=== PATIENT | female | born 1955 | race Caucasian/White ===

== ENCOUNTER 2022-02-19 11:41 | Emergency (ER) | payer MEDICARE, MEDICAID, SELFPAY ==
[2022-02-19 11:48] VITALS: BP 140/95; PULSE 97; RESP 15; TEMP 35.8; O2SAT 97; BMI 24.9
[2022-02-19 12:20] LABS: Add Manual Diff / Slide Review NO; Basophils Absolute Auto 100 /uL (0-100); Basophils Percent Auto 1.5 % (0-2); Eosinophils Absolute Auto 200 /uL (0-450); Eosinophils Percent Auto 3.7 % (2-4); Hematocrit 36.2 % (36-46); Hemoglobin 12.4 g/dL (12.0-16.0); Lymphocytes Absolute Auto 2100 /uL (1100-4500); Lymphocytes Percent Auto 38.6 % (25-40); Mean Corpuscular HGB Conc 34.2 % (30-36); Mean Corpuscular Hemoglobin 33.9 PG (26-34); Mean Corpuscular Volume 99.2 fL (80-100); Monocytes Absolute Auto 600 /uL (0-900); Neutrophils Absolute Auto 2400 /uL (1500-7000); Neutrophils Percent Auto 45.2 % (50-75); Platelet Count 250 X10^3/uL (150-400); Red Blood Cell Count 3.65 X10^6/uL (4.0-5.2); Red Cell Distribution Width 14.6 % (11.6-14.8); White Blood Cell Count 5.4 X10^3/uL (4.5-11.0)
[2022-02-19 12:41] LABS: Alanine Aminotransferase 20 IU/L (<35); Albumin 4.4 g/dL (3.5-5.0); Albumin Globulin Ratio 1.1 (1.0-2.8); Alkaline Phosphatase 108 U/L (38-126); Aspartate Aminotransferase 43 IU/L (14-36); BUN Creatinine Ratio 15.3 (6-22); Bilirubin Total 0.3 mg/dL (0.2-1.3); Blood Urea Nitrogen 11 mg/dL (7-17); Calcium 8.9 mg/dL (8.4-10.2); Carbon Dioxide 29 mmol/L (22-32); Estimated Glomerular Filt Rate > 60 mL/min (>60); Globulin 4.1 g/dL (1.7-4.1); Glucose 94 mg/dL (80-110); HEMOLYSIS < 15 (0-50); Salicylate < 1.0 mg/dL (<20); Total Protein 8.5 g/dL (6.3-8.2)
[2022-02-19 12:57] LABS: Free T4, Direct Thyroxine 0.85 ng/dL (0.78-2.19)
[2022-02-19 13:14] LABS: Acetaminophen < 10 ug/mL (10-30); Ethanol (ETOH) 281 mg/dL
[2022-02-19 13:16] LABS: Chloride 109 mmol/L (98-107); Potassium 4.1 mmol/L (3.4-5.1); Sodium 146 mmol/L (137-145)
[2022-02-19 13:27] LABS: UR Morphine/Opiate cutoff 300 Negative (Negative); Ur Creatinine Normal (Normal); Ur Specific Gravity Normal (Normal); Urine Amphetamines Negative (Negative); Urine Barbiturates Negative (Negative); Urine Benzodiazepines Negative (Negative); Urine Cocaine Negative (Negative); Urine MDMA Negative (Negative); Urine Methadone Negative (Negative); Urine Methamphetamines Negative (Negative); Urine Oxycodone Negative (Negative); Urine Phencyclidine Negative (Negative); Urine Tricyclic Antidepressant Negative (Negative); Urine pH Normal (Normal)
[2022-02-19 13:55] VITALS: BP 135/75; PULSE 82; O2SAT 97
[2022-02-19 15:11] VITALS: O2SAT 97
--- NOTE | 2022-02-19 15:11 | ED.PSYCH ---
HPI - Psych <Saira Jara, [facility] - Last Filed: 02/19/22 15:28> General Chief Complaint: Psychiatric Symptoms Stated Complaint: Blood alcohol .14 Time Seen by Provider: 02/19/22 12:16 Source: patient Mode of arrival: Ambulatory History of Present Illness HPI Narrative: This is a 66-year-old female who presents to the emergency department stating that she is very sad and depressed and does not want to live because she has no hope. She is currently living at the [facility] and patient is not living there with a family and states that her family is living in [place] and in [place], they are nearby but she is feeling very lonely. She states that she no longer has hope and came in for assistance to a transitions program at the [facility] so that she can live there for reduced cost. Patient states that she feels isolated and exhausted, she has not been taking her losartan, citalopram or bupropion for the last few days because she states that she was too depressed to take them. She is tearful, here with Jenny Blankenship from the [facility] who states that patient had a blood alcohol level of 0.14 earlier today. Patient denies drinking alcohol, she states that she does not drink alcohol daily or monthly. She denies any audio or visual hallucinations, she denies any voices, she denies any intent to hurt other people, she denies any intention of killing herself or hurting herself. She states that she wants to get an appointment at the sleep study center so she can get fitted for her CPAP machine and this is causing her stress because she is not sleeping well. It appears that patient has a scheduled appointment on March 23 for follow-up. Patient states that there is a child crying frequently at the [facility] who needs help and she feels like this was a trigger. She does not endorse drinking alcohol, she states that she uses a high alcohol mouthwash for her bleeding gums and she also uses permethrin cream for a rash on her hand which has alcohol in it. Leonie from social work is in room for evaluation. Related Data Home Medications Medication Instructions Recorded Confirmed aspirin 81 mg tablet,delayed 81 mg PO DAILY 01/12/22 02/05/22 release bupropion HCl 150 mg tablet,12 hr 150 mg PO QAM 01/12/22 02/05/22 sustained-release citalopram 20 mg tablet 20 mg PO DAILY 01/12/22 02/05/22 hydroxyzine pamoate 25 mg/5 mL mg PO 01/12/22 02/05/22 oral suspension levothyroxine 50 mcg capsule 50 mcg PO DAILY 01/12/22 02/05/22 losartan 50 mg tablet 50 mg PO DAILY 01/12/22 02/05/22 omeprazole 20 mg capsule,delayed 20 mg PO DAILY 01/12/22 02/05/22 release Allergies Allergy/AdvReac Type Severity Reaction Status Date / Time No Known Drug Allergies Allergy Verified 02/19/22 11:48 Review of Systems <VALENTINE Newsome - Last Filed: 02/19/22 15:28> Review of Systems Narrative: Review of systems is negative for acute abnormalities unless otherwise noted in HPI Patient History <VALENTINE Newsome - Last Filed: 02/19/22 15:28> Medical History Obstructive sleep apnea (adult) (pediatric) Social History Smoking Status: Never smoker Smoking Status: Never smoker alcohol intake frequency: 3 or more drinks per day Substance Use Type: does not use Exam <VALENTINE Newsome - Last Filed: 02/19/22 15:28> Narrative Exam Narrative: Reviewed vitals signs and nursing notes. General: cooperative, well groomed, tearful, anxious, denies any pain or abnormal medical condition HEENT: symmetrical facial expressions, moist mucous membranes Cardiovascular: regular rate and rhythm, no peripheral edema, warm extremities Respiratory: normal effort, able to speak in complete sentences, without wheezing, stridor, or abnormal breath sounds. No retractions or tachypnea. GI: abdomen soft, nontender to palpation, nondistended, without masses, rebound tenderness or exquisite tenderness with exam. MSK: moves all extremities, neurovascularly intact, no weakness, normal tone Skin: brisk capillary refill, without pallor or erythema Neuro: normal speech and cognition, A&O x3, ambulatory, clear speech Psych: mental status is grossly normal, congruent mood, normal affect, pleasant and cooperative, talkative, A&O x3 Initial Vital Signs Initial Vital Signs: Vital Signs Temperature 96.4 F L 02/19/22 11:48 Pulse Rate 97 H 02/19/22 11:48 Respiratory Rate 15 02/19/22 11:48 Blood Pressure 140/95 H 02/19/22 11:48 Pulse Oximetry 97 02/19/22 11:48 Oxygen Delivery Method 02/19/22 11:48 <Jamaica Paz DO - Last Filed: 02/25/22 08:38> Initial Vital Signs Initial Vital Signs: Vital Signs Temperature 96.4 F L 02/19/22 11:48 Pulse Rate 97 H 02/19/22 11:48 Respiratory Rate 15 02/19/22 11:48 Blood Pressure 140/95 H 02/19/22 11:48 Pulse Oximetry 97 02/19/22 11:48 Oxygen Delivery Method 02/19/22 11:48 Course <VALENTINE Newsome - Last Filed: 02/19/22 15:28> Orders Ordered: ED Orders 02/19/22 11:56 Urine Drug Screen, Rapid Stat 02/19/22 12:06 Acetaminophen Stat Complete Blood Count AUTO DIFF Stat Comprehensive Metabolic Panel Stat Ethanol (ETOH) Stat Free T4, Direct Thyroxine Stat Salicylate Stat Thyroid Stimulating Hormone Stat 02/19/22 14:04 Consult to [facility] Label Sewer Stat Vital Signs Vital signs: Vital Signs - 8 hr 02/19/22 11:48 02/19/22 13:55 02/19/22 13:55 Temperature 96.4 F L Pulse Rate 97 H 82 Respiratory Rate 15 Blood Pressure 140/95 H 135/75 Pulse Oximetry 97 97 Oxygen Delivery Method Room Air 02/19/22 15:11 02/19/22 15:12 02/19/22 15:12 Temperature 98.0 F Pulse Rate 76 Respiratory Rate Blood Pressure 158/70 H Pulse Oximetry 97 97 Oxygen Delivery Method <Jamaica Paz DO - Last Filed: 02/25/22 08:38> Orders Ordered: ED Orders 02/19/22 11:56 Urine Drug Screen, Rapid Stat 02/19/22 12:06 Acetaminophen Stat Complete Blood Count AUTO DIFF Stat Comprehensive Metabolic Panel Stat Ethanol (ETOH) Stat Free T4, Direct Thyroxine Stat Salicylate Stat Thyroid Stimulating Hormone Stat 02/19/22 14:04 Consult to [facility] Label Sewer Stat Vital Signs Vital signs: Vital Signs - 8 hr 02/19/22 11:48 02/19/22 13:55 02/19/22 13:55 Temperature 96.4 F L Pulse Rate 97 H 82 Respiratory Rate 15 Blood Pressure 140/95 H 135/75 Pulse Oximetry 97 97 Oxygen Delivery Method Room Air 02/19/22 15:11 02/19/22 15:12 02/19/22 15:12 Temperature 98.0 F Pulse Rate 76 Respiratory Rate Blood Pressure 158/70 H Pulse Oximetry 97 97 Oxygen Delivery Method MDM - Psych <Saira Jara, [employer] - Last Filed: 02/19/22 15:28> Lab Data Result diagrams: 02/19/22 12:06 02/19/22 12:06 Labs: Lab Results 02/19/22 02/19/22 02/19/22 Range/Units 11:56 12:06 12:06 WBC 5.4 (4.5-11.0) X10^3/uL RBC 3.65 L (4.0-5.2) X10^6/uL Hgb 12.4 (12.0-16.0) g/dL Hct 36.2 (36-46) % MCV 99.2 (80-100) fL MCH 33.9 (26-34) PG MCHC 34.2 (30-36) % RDW 14.6 (11.6-14.8) % Plt Count 250 (150-400) X10^3/uL Neut % (Auto) 45.2 L (50-75) % Lymph % (Auto) 38.6 (25-40) % [place] % (Auto) 11.0 (3-14) % Eos % (Auto) 3.7 (2-4) % Baso % (Auto) 1.5 (0-2) % Neut # (Auto) 2400 (0406-6728) /uL Lymph # (Auto) 2100 (1701-0341) /uL [place] # (Auto) 600 (0-900) /uL Eos # (Auto) 200 (0-450) /uL Baso # (Auto) 100 (0-100) /uL Sodium 146 H (137-145) mmol/L Potassium 4.1 (3.4-5.1) mmol/L Chloride 109 H (98-107) mmol/L Carbon Dioxide 29 (22-32) mmol/L BUN 11 (7-17) mg/dL Creatinine 0.72 (0.52-1.04) mg/dL Estimated GFR > 60 (>60) mL/min BUN/Creatinine Ratio 15.3 (6-22) Glucose 94 (80-110) mg/dL Calcium 8.9 (8.4-10.2) mg/dL Total Bilirubin 0.3 (0.2-1.3) mg/dL AST 43 H (14-36) IU/L ALT 20 (<35) IU/L Alkaline Phosphatase 108 (38-126) U/L Total Protein 8.5 H (6.3-8.2) g/dL Albumin 4.4 (3.5-5.0) g/dL Globulin 4.1 (1.7-4.1) g/dL Albumin/Globulin Ratio 1.1 (1.0-2.8) TSH (0.47-4.68) uIU/mL Free T4 (0.78-2.19) ng/dL Salicylates < 1.0 (<20) mg/dL U Opiates 300ng/mL cut Negative (Negative) Ur Oxycodone Screen Negative (Negative) Urine Methadone Screen Negative (Negative) Acetaminophen < 10 (10-30) ug/mL Ur Barbiturates Screen Negative (Negative) U Tricyclic Antidepress Negative (Negative) Ur Phencyclidine Scrn Negative (Negative) Ur Amphetamines Screen Negative (Negative) U Methamphetamines Scrn Negative (Negative) Ur MDMA Scrn (Ecstasy) Negative (Negative) U Benzodiazepines Scrn Negative (Negative) Urine Cocaine Screen Negative (Negative) U Marijuana (THC) Screen TNP Ethyl Alcohol 281 H ( - 10) mg/dL 02/19/22 Range/Units 12:06 WBC (4.5-11.0) X10^3/uL RBC (4.0-5.2) X10^6/uL Hgb (12.0-16.0) g/dL Hct (36-46) % MCV (80-100) fL MCH (26-34) PG MCHC (30-36) % RDW (11.6-14.8) % Plt Count (150-400) X10^3/uL Neut % (Auto) (50-75) % Lymph % (Auto) (25-40) % [place] % (Auto) (3-14) % Eos % (Auto) (2-4) % Baso % (Auto) (0-2) % Neut # (Auto) (7238-6476) /uL Lymph # (Auto) (6604-8976) /uL [place] # (Auto) (0-900) /uL Eos # (Auto) (0-450) /uL Baso # (Auto) (0-100) /uL Sodium (137-145) mmol/L Potassium (3.4-5.1) mmol/L Chloride (98-107) mmol/L Carbon Dioxide (22-32) mmol/L BUN (7-17) mg/dL Creatinine (0.52-1.04) mg/dL Estimated GFR (>60) mL/min BUN/Creatinine Ratio (6-22) Glucose (80-110) mg/dL Calcium (8.4-10.2) mg/dL Total Bilirubin (0.2-1.3) mg/dL AST (14-36) IU/L ALT (<35) IU/L Alkaline Phosphatase (38-126) U/L Total Protein (6.3-8.2) g/dL Albumin (3.5-5.0) g/dL Globulin (1.7-4.1) g/dL Albumin/Globulin Ratio (1.0-2.8) TSH 3.70 (0.47-4.68) uIU/mL Free T4 0.85 (0.78-2.19) ng/dL Salicylates (<20) mg/dL U Opiates 300ng/mL cut (Negative) Ur Oxycodone Screen (Negative) Urine Methadone Screen (Negative) Acetaminophen (10-30) ug/mL Ur Barbiturates Screen (Negative) U Tricyclic Antidepress (Negative) Ur Phencyclidine Scrn (Negative) Ur Amphetamines Screen (Negative) U Methamphetamines Scrn (Negative) Ur MDMA Scrn (Ecstasy) (Negative) U Benzodiazepines Scrn (Negative) Urine Cocaine Screen (Negative) U Marijuana (THC) Screen Ethyl Alcohol ( - 10) mg/dL Urine Dip Bedside Urine Glucose Negative Bedside Urine Bilirubin - Negative Bedside Urine Ketone - Negative Urine Specific [place] 1.015 Bedside Urine Occult Blood - Negative Bedside Urine pH 6.0 Bedside Urine Protein - Negative Bedside Urine Urobilinogen - Negative Bedside Urine Nitrite - Negative Bedside Urine Leukocytes - Negative Esterase MDM Narrative Medical decision making narrative: This is a 66-year-old female who presents to the emergency department for evaluation of her depression, she is here from the [facility] with the counselor on site- Jenny Blankenship. Patient had a blood alcohol level of 0.14 this morning, she was brought in for evaluation of her suicidality for medical screening and resources. Her medical screening evaluation was completed, patient denies drinking alcohol, states it is mouthwash and permethrin cream that is causing her alcohol level to go high, her ethyl alcohol level was 281 on evaluation in the emergency department. Patient's lab work was unremarkable, no significant findings other than her elevated alcohol level. She denies any pain, has not been taking her antihypertensives or antidepressants for the last few days due to her depression. She was evaluated by Leonie from social work and patient requests to go home, she does not want to go to inpatient psychiatric care or detox. She does not endorse suicidality or homicidality at this time, she is alert and oriented. Medical screening exam is reassuring, at this time not see any evidence of acute metabolic or infectious derangement would otherwise explain the patient's presentation. Discuss alcohol use and avoidance of, encourage patient to start taking her antidepressants and follow-up with her PCP if she is having worsening depression despite taking her medications. Please see INSPECTOR GENERAL note. Patient endorses future orientation and does not express suicidality. She is given strict return precautions and understands that she can be discharged with a safety contract to return to the emergency department for any worsening of these thoughts or any intentions to hurt herself or other people. Patient is appropriate and amenable to discharge home. Vital signs are stable on repeat examination is unremarkable. Patient has been informed of results. Patient has been given strict return to ER precautions for any new or worsening symptoms. Patient understands to follow up closely with outpatient providers as instructed. Patient understands plan and agrees to discharge home. All questions and concerns answered at this time. <Jamaica Paz, DO - Last Filed: 02/25/22 08:38> Lab Data Labs: Lab Results 02/19/22 02/19/22 02/19/22 Range/Units 11:56 12:06 12:06 WBC 5.4 (4.5-11.0) X10^3/uL RBC 3.65 L (4.0-5.2) X10^6/uL Hgb 12.4 (12.0-16.0) g/dL Hct 36.2 (36-46) % MCV 99.2 (80-100) fL MCH 33.9 (26-34) PG MCHC 34.2 (30-36) % RDW 14.6 (11.6-14.8) % Plt Count 250 (150-400) X10^3/uL Neut % (Auto) 45.2 L (50-75) % Lymph % (Auto) 38.6 (25-40) % [place] % (Auto) 11.0 (3-14) % Eos % (Auto) 3.7 (2-4) % Baso % (Auto) 1.5 (0-2) % Neut # (Auto) 2400 (1454-2226) /uL Lymph # (Auto) 2100 (4321-2058) /uL [place] # (Auto) 600 (0-900) /uL Eos # (Auto) 200 (0-450) /uL Baso # (Auto) 100 (0-100) /uL Sodium 146 H (137-145) mmol/L Potassium 4.1 (3.4-5.1) mmol/L Chloride 109 H (98-107) mmol/L Carbon Dioxide 29 (22-32) mmol/L BUN 11 (7-17) mg/dL Creatinine 0.72 (0.52-1.04) mg/dL Estimated GFR > 60 (>60) mL/min BUN/Creatinine Ratio 15.3 (6-22) Glucose 94 (80-110) mg/dL Calcium 8.9 (8.4-10.2) mg/dL Total Bilirubin 0.3 (0.2-1.3) mg/dL AST 43 H (14-36) IU/L ALT 20 (<35) IU/L Alkaline Phosphatase 108 (38-126) U/L Total Protein 8.5 H (6.3-8.2) g/dL Albumin 4.4 (3.5-5.0) g/dL Globulin 4.1 (1.7-4.1) g/dL Albumin/Globulin Ratio 1.1 (1.0-2.8) TSH (0.47-4.68) uIU/mL Free T4 (0.78-2.19) ng/dL Salicylates < 1.0 (<20) mg/dL U Opiates 300ng/mL cut Negative (Negative) Ur Oxycodone Screen Negative (Negative) Urine Methadone Screen Negative (Negative) Acetaminophen < 10 (10-30) ug/mL Ur Barbiturates Screen Negative (Negative) U Tricyclic Antidepress Negative (Negative) Ur Phencyclidine Scrn Negative (Negative) Ur Amphetamines Screen Negative (Negative) U Methamphetamines Scrn Negative (Negative) Ur MDMA Scrn (Ecstasy) Negative (Negative) U Benzodiazepines Scrn Negative (Negative) Urine Cocaine Screen Negative (Negative) U Marijuana (THC) Screen TNP Ethyl Alcohol 281 H ( - 10) mg/dL 02/19/22 Range/Units 12:06 WBC (4.5-11.0) X10^3/uL RBC (4.0-5.2) X10^6/uL Hgb (12.0-16.0) g/dL Hct (36-46) % MCV (80-100) fL MCH (26-34) PG MCHC (30-36) % RDW (11.6-14.8) % Plt Count (150-400) X10^3/uL Neut % (Auto) (50-75) % Lymph % (Auto) (25-40) % [place] % (Auto) (3-14) % Eos % (Auto) (2-4) % Baso % (Auto) (0-2) % Neut # (Auto) (5045-3319) /uL Lymph # (Auto) (9512-6235) /uL [place] # (Auto) (0-900) /uL Eos # (Auto) (0-450) /uL Baso # (Auto) (0-100) /uL Sodium (137-145) mmol/L Potassium (3.4-5.1) mmol/L Chloride (98-107) mmol/L Carbon Dioxide (22-32) mmol/L BUN (7-17) mg/dL Creatinine (0.52-1.04) mg/dL Estimated GFR (>60) mL/min BUN/Creatinine Ratio (6-22) Glucose (80-110) mg/dL Calcium (8.4-10.2) mg/dL Total Bilirubin (0.2-1.3) mg/dL AST (14-36) IU/L ALT (<35) IU/L Alkaline Phosphatase (38-126) U/L Total Protein (6.3-8.2) g/dL Albumin (3.5-5.0) g/dL Globulin (1.7-4.1) g/dL Albumin/Globulin Ratio (1.0-2.8) TSH 3.70 (0.47-4.68) uIU/mL Free T4 0.85 (0.78-2.19) ng/dL Salicylates (<20) mg/dL U Opiates 300ng/mL cut (Negative) Ur Oxycodone Screen (Negative) Urine Methadone Screen (Negative) Acetaminophen (10-30) ug/mL Ur Barbiturates Screen (Negative) U Tricyclic Antidepress (Negative) Ur Phencyclidine Scrn (Negative) Ur Amphetamines Screen (Negative) U Methamphetamines Scrn (Negative) Ur MDMA Scrn (Ecstasy) (Negative) U Benzodiazepines Scrn (Negative) Urine Cocaine Screen (Negative) U Marijuana (THC) Screen Ethyl Alcohol ( - 10) mg/dL Urine Dip Bedside Urine Glucose Negative Bedside Urine Bilirubin - Negative Bedside Urine Ketone - Negative Urine Specific [place] 1.015 Bedside Urine Occult Blood - Negative Bedside Urine pH 6.0 Bedside Urine Protein - Negative Bedside Urine Urobilinogen - Negative Bedside Urine Nitrite - Negative Bedside Urine Leukocytes - Negative Esterase Discharge Plan Departure Patient Disposition: Home Clinical Impression: Depressed mood, Alcohol intoxication with blood alcohol level 0.08-0.29 Instructions: Depression, Alcohol Use Disorder, DI for Suicidal Ideation-Adult Activity Restrictions/Additional Instructions: *You have been diagnosed with depression. I recommend following up with counseling, and ask your primary care provider for a neuropsych referral for evaluation. Please go to your appointment at the sleep study center at 20:00 on March 23. Your lab work today was unremarkable without any abnormal findings other than your alcohol level. Please follow-up with your primary care provider regarding your depression and depressive thoughts. Please start taking your antidepressant, you are on a high-dose and this needs to be maintained for you to have any benefit from it. I hope that you feel better soon, please follow-up with any outpatient resources have been provided for you today. I wish you the best and stay safe. *What to do: *Please continue to take your regular medications as directed. [ ] New medication prescriptions sent to your pharmacy: [ ] [ ] New medication written as a paper prescription [x ] No new medications given *Please follow up with your primary care provider in 2-3 days, call for an appointment. Let them know you were seen in the Emergency Department and that we asked that you be seen for follow-up. We will electronically transmit a record of today's note if your PCP is in our system *If you do not have a primary care provider please contact [phone] to establish care with one of the [facility] primary care providers. *Return to Emergency Department if you should have any new, worsening, or concerning symptoms, such as [fever greater than 101F, chills, worsening pain, persistent vomiting or other bothersome symptoms]. Prescriptions: No Action aspirin 81 mg tablet,delayed release (DR/EC) 81 mg PO DAILY bupropion HCl 150 mg tablet sustained-release 12 hr 150 mg PO QAM citalopram 20 mg tablet 20 mg PO DAILY hydroxyzine pamoate 25 mg/5 mL suspension PO levothyroxine 50 mcg capsule 50 mcg PO DAILY losartan 50 mg tablet 50 mg PO DAILY omeprazole 20 mg capsule,delayed release(DR/EC) 20 mg PO DAILY Referrals: Delbert Lebron MD [Physician] - (Please follow-up on March 23 at 20:00 for your 10 hour sleep study appointment) Laila Mariee MD [Primary Care Provider] - Visit Report Forms: Patient Portal/API <Jamaica Paz DO - Last Filed: 02/25/22 08:38> Cosign ED Attending Dollyature Attestation: I was immediately available in the department for consultation. Documentation has been reviewed. I agree with assessment and plan.
[2022-02-19 15:12] VITALS: BP 158/70; PULSE 76; TEMP 36.7; O2SAT 97
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
== END 2022-02-19 15:24 | disposition home or self-care (01) ==
PROVIDERS: Emergency Medicine; Emergency Provider Nurse Practitioner Critical Care Medicine; PCP Family Medicine
DX: F10.129 Alcohol abuse with intoxication, unspecified (principal); Y90.8 Blood alcohol level of 240 mg/100 ml or more; F32.A Depression, unspecified
CPT/HCPCS: 36415; 80053; 80305; 80320; 80329; 81003; 84439; 84443; 85025; 99283; G0480

== ENCOUNTER → 2022-03-16 17:05 | Outpatient (CLI) | payer MEDICARE, MEDICAID, SELFPAY | PROVIDERS: PCP Family Medicine; Referring Provider Family Medicine; Visit Provider Family Medicine | DX: Z02.83 Encounter for blood-alcohol and blood-drug test (principal) | CPT/HCPCS: 36415; 80320 ==

== ENCOUNTER 2023-04-26 06:20 | Emergency (ER) | payer MEDICARE, SELFPAY ==
[2023-04-26] VITALS (8 sets, daily range): BP systolic 147–183; BP diastolic 84–107; PULSE 86–122; RESP 13–21; TEMP 35.9; O2SAT 93–97; BMI 22.3
[2023-04-26 07:00] LABS: Add Manual Diff / Slide Review NO; Basophils Absolute Auto 0 /uL (0-100); Basophils Percent Auto 0.4 % (0-2); Eosinophils Absolute Auto 100 /uL (0-450); Hematocrit 37.3 % (36-46); Hemoglobin 12.8 g/dL (12.0-16.0); Lymphocytes Absolute Auto 1800 /uL (1100-4500); Lymphocytes Percent Auto 35.7 % (25-40); Mean Corpuscular HGB Conc 34.3 % (30-36); Mean Corpuscular Hemoglobin 35.7 PG (26-34); Mean Corpuscular Volume 104.2 fL (80-100); Monocytes Absolute Auto 500 /uL (0-900); Monocytes Percent Auto 10.1 % (3-14); Neutrophils Absolute Auto 2600 /uL (1500-7000); Neutrophils Percent Auto 50.8 % (50-75); Platelet Count 121 X10^3/uL (150-400); Red Blood Cell Count 3.58 X10^6/uL (4.0-5.2); Red Cell Distribution Width 14.5 % (11.6-14.8)
[2023-04-26 07:10] LABS: PTT Partial Thromboplastin Tim 33 SECONDS (26-36)
[2023-04-26 07:16] LABS: Alanine Aminotransferase 42 IU/L (<35); Albumin 4.7 g/dL (3.5-5.0); Albumin Globulin Ratio 1.2 (1.0-2.8); Alkaline Phosphatase 89 U/L (38-126); Aspartate Aminotransferase 80 IU/L (14-36); BUN Creatinine Ratio 17.3 (6-22); Bilirubin Total 0.5 mg/dL (0.2-1.3); Blood Urea Nitrogen 9 mg/dL (7-17); Calcium 9.7 mg/dL (8.4-10.2); Carbon Dioxide 26 mmol/L (22-32); Chloride 101 mmol/L (98-107); Estimated Glomerular Filt Rate > 60 mL/min (>60); Ethanol (ETOH) 137 mg/dL; Globulin 3.9 g/dL (1.7-4.1); Glucose 92 mg/dL (80-110); HEMOLYSIS < 15 (0-50); Lipase 118 U/L (23-300); Potassium 3.7 mmol/L (3.4-5.1); Sodium 144 mmol/L (137-145); Total Protein 8.6 g/dL (6.3-8.2)
--- NOTE | 2023-04-26 07:23 | DI.RAD.S_ITS ---
PROCEDURE: XR CHEST 1V INDICATIONS: PRODUCTIVE COUGH TECHNIQUE: One view of the chest was acquired. COMPARISON: None. FINDINGS: Surgical changes and devices: None. Lungs and pleura: Lungs are clear. No pleural effusions or pneumothorax. Mediastinum: Mediastinal contours appear normal. Heart size is normal. Bones and chest wall: No suspicious bony lesions. Overlying soft tissues appear unremarkable. IMPRESSION: No acute cardiopulmonary abnormalities or focal airspace disease. Dictated by: Chu Wynn M.D. on 04/26/2023 at 7:46 Approved by: Chu Wynn M.D. on 04/26/2023 at 7:47
--- NOTE | 2023-04-26 07:28 | ED.ALCOHOL ---
HPI - Alcohol General Chief Complaint: Toxicology Problem Stated Complaint: drinking problem Time Seen by Provider: 04/26/23 06:38 Source: patient Mode of arrival: Ambulatory History of Present Illness HPI narrative: 68-year-old female with history of hypertension, alcohol abuse, tobacco abuse presents for ?dehydration?. She states that she drinks a 5th of alcohol daily, last drink was earlier this night. She states that she has friends in and does not want help with rehab services for her alcohol use. She states that she needs IV fluids to jump start her recovery and we will call her support group from a later today. She does endorse that she is homeless and has not been taking very good care of herself. She is about to get into a home later this week. Also reports a cough for the last 3-4 weeks, occasionally productive of sputum. In the mornings it is red tinged and she is concerned it may be blood. Related Data Home Medications Medication Instructions Recorded Confirmed aspirin 81 mg tablet,delayed 81 mg PO DAILY 01/12/22 02/05/22 release bupropion HCl 150 mg tablet,12 hr 150 mg PO QAM 01/12/22 02/05/22 sustained-release citalopram 20 mg tablet 20 mg PO DAILY 01/12/22 02/05/22 hydroxyzine pamoate 25 mg/5 mL mg PO 01/12/22 02/05/22 oral suspension levothyroxine 50 mcg capsule 50 mcg PO DAILY 01/12/22 02/05/22 losartan 50 mg tablet 50 mg PO DAILY 01/12/22 02/05/22 omeprazole 20 mg capsule,delayed 20 mg PO DAILY 01/12/22 02/05/22 release Previous Rx's Medication Instructions Recorded chlordiazepoxide HCl 25 mg capsule 25 mg PO .ASDIR #15 caps 04/26/23 Allergies Allergy/AdvReac Type Severity Reaction Status Date / Time No Known Drug Allergies Allergy Verified 02/19/22 11:48 Review of Systems Review of Systems Narrative: Negative except as noted above Patient History Medical History Obstructive sleep apnea (adult) (pediatric) Social History Smoking Status: Never smoker Smoking Status: Never smoker alcohol intake frequency: 3 or more drinks per day Substance Use Type: does not use Exam Initial Vital Signs Initial Vital Signs: Vital Signs Temperature 96.7 F L 04/26/23 06:41 Pulse Rate 108 H 04/26/23 06:41 Respiratory Rate 15 04/26/23 06:41 Blood Pressure 183/107 H 04/26/23 06:41 Pulse Oximetry 94 04/26/23 06:41 Oxygen Delivery Method Room Air 04/26/23 06:41 Const: Awake, alert, no acute distress, appears chronically unwell Eyes: PERRL, EOMI, conjunctiva normal ENT: Atraumatic, dentition normal, mucous membranes moist Cardiac: regular rate, regular rhythm RESP: unlabored, clear bilaterally, no wheezing GI: Atraumatic, soft, nontender, nondistended, no rebound, no guarding MSK: Atraumatic, full range of motion, pulses equal Skin: Warm, Dry, intact, no rashes Neuro: AO x3, CN II-XII grossly intact, moves all extremities Psych: affect normal, mood normal, not suicidal, not homicidal Course Course Course Narrative: Patient is chronically unwell appearing, presenting primarily for medical evaluation and IV fluids before quitting alcohol. Patient does not appear to be in acute withdrawal at this time, she is not tremulous, tachycardic, in any distress. Thiamine and folic acid ordered. Orders Ordered: ED Orders 04/26/23 06:39 EKG-12 Lead Stat 04/26/23 06:50 CBC Auto Diff [Complete Blood Count AUTO DIFF] Stat CMP [Comprehensive Metabolic Panel] Stat ETOH [Ethanol (ETOH)] Stat Lipase Stat PT [Prothrombin Time INR] Stat PTT Partial Thromboplastin Vidal Stat 04/26/23 07:23 Chest [XR chest 1V] Stat 04/26/23 07:38 Urinalysis and Microscopic Stat Discontinued Medications Folic Acid (Folic Acid 1 Mg Tablet) 1 mg PO NOW ONE Stop: 04/26/23 07:24 Last Admin: 04/26/23 07:53 Dose: 1 mg Documented By: ASHLI Thiamine HCl 100 mg/ Sodium (Chloride) 101 mls @ 404 mls/hr IV NOW ONE Stop: 04/26/23 07:24 Last Infusion: 04/26/23 08:17 Dose: Infused Documented By: Admin: 04/26/23 07:55 Dose: 404 mls/hr Documented By: ASHLI Sodium Chloride (Normal Saline 0.9%) 1,000 mls @ 1,000 mls/hr IV BOLUS ONE Stop: 04/26/23 08:22 Last Admin: 04/26/23 07:55 Dose: 1,000 mls/hr Documented By: ASHLI Reevaluation(s) Reevaluation #1: Patient feeling better after IV fluids. Laboratory work is reviewed, no significant abnormality. Chest x-ray negative for acute findings, patient's cough is likely the development of bronchitis from chronic tobacco abuse. Patient again declines to receive rehab resources, stating that she will call her AA partners. Librium taper sent to pharmacy. Patient advised on the importance of smoking cessation. Vital Signs Vital signs: Vital Signs - 8 hr 04/26/23 06:41 04/26/23 06:56 04/26/23 07:00 Temperature 96.7 F L Pulse Rate 108 H 94 H Respiratory Rate 15 15 Blood Pressure 183/107 H 160/101 H Pulse Oximetry 94 93 Oxygen Delivery Method Room Air 04/26/23 07:00 04/26/23 07:37 04/26/23 07:46 Temperature Pulse Rate 122 H 112 H 100 H Respiratory Rate 21 13 Blood Pressure Pulse Oximetry 95 97 Oxygen Delivery Method 04/26/23 07:46 04/26/23 08:00 04/26/23 08:00 Temperature Pulse Rate 91 H Respiratory Rate 15 Blood Pressure 147/84 H 169/90 H Pulse Oximetry 97 Oxygen Delivery Method 04/26/23 08:30 04/26/23 08:30 04/26/23 08:32 Temperature Pulse Rate 86 88 Respiratory Rate 16 18 Blood Pressure 177/93 H 177/93 H Pulse Oximetry 96 96 Oxygen Delivery Method Room Air MDM - Alcohol Differential Diagnosis Differential diagnosis: Likely alcohol withdrawal delirium, hypomagnesemia and alcohol intoxication Lab Data 04/26/23 06:50 04/26/23 06:50 Labs: Lab Results 04/26/23 04/26/23 Range/Units 06:50 07:38 WBC 5.0 (4.5-11.0) X10^3/uL RBC 3.58 L (4.0-5.2) X10^6/uL Hgb 12.8 (12.0-16.0) g/dL Hct 37.3 (36-46) % MCV 104.2 H (80-100) fL MCH 35.7 H (26-34) PG MCHC 34.3 (30-36) % RDW 14.5 (11.6-14.8) % Plt Count 121 L (150-400) X10^3/uL Neut % (Auto) 50.8 (50-75) % Lymph % (Auto) 35.7 (25-40) % [place] % (Auto) 10.1 (3-14) % Eos % (Auto) 3.0 (2-4) % Baso % (Auto) 0.4 (0-2) % Neut # (Auto) 2600 (8525-3450) /uL Lymph # (Auto) 1800 (5493-0846) /uL [place] # (Auto) 500 (0-900) /uL Eos # (Auto) 100 (0-450) /uL Baso # (Auto) 0 (0-100) /uL PT 12.0 (10.1-12.7) SECONDS INR 1.0 (0.9-1.3) APTT 33 (26-36) SECONDS Sodium 144 (137-145) mmol/L Potassium 3.7 (3.4-5.1) mmol/L Chloride 101 (98-107) mmol/L Carbon Dioxide 26 (22-32) mmol/L BUN 9 (7-17) mg/dL Creatinine 0.52 (0.52-1.04) mg/dL Estimated GFR > 60 (>60) mL/min BUN/Creatinine Ratio 17.3 (6-22) Glucose 92 (80-110) mg/dL Calcium 9.7 (8.4-10.2) mg/dL Total Bilirubin 0.5 (0.2-1.3) mg/dL AST 80 H (14-36) IU/L ALT 42 H (<35) IU/L Alkaline Phosphatase 89 (38-126) U/L Total Protein 8.6 H (6.3-8.2) g/dL Albumin 4.7 (3.5-5.0) g/dL Globulin 3.9 (1.7-4.1) g/dL Albumin/Globulin Ratio 1.2 (1.0-2.8) Lipase 118 (23-300) U/L Urine Color Yellow Urine Appearance Clear Urine pH 8.0 (4.5-8.0) Ur Specific [place] 1.015 (1.000-1.035) Urine Protein 1+ H (Negative) Urine Glucose (UA) Negative (Negative) g/dL Urine Ketones Negative (NEGATIVE) Urine Occult Blood Negative (Negative) Urine Nitrate Negative (Negative) Urine Bilirubin Negative (NEGATIVE) Urine Urobilinogen 1.0 (0.2) E.U./dL Ur Leukocyte Esterase Negative (NEGATIVE) Urine RBC 0-1/hpf (0-5/HPF) Urine WBC 0-1/hpf (0-5/HPF) Ur Squamous Epith Cells 10-30 /hpf H (0-5/HPF) Urine Bacteria None seen (None) Ur Culture Indicated? Cult not indicated U Opiates 300ng/mL cut Cancelled Ur Oxycodone Screen Cancelled Urine Methadone Screen Cancelled Ur Barbiturates Screen Cancelled U Tricyclic Antidepress Cancelled Ur Phencyclidine Scrn Cancelled Ur Amphetamines Screen Cancelled U Methamphetamines Scrn Cancelled Ur MDMA Scrn (Ecstasy) Cancelled U Benzodiazepines Scrn Cancelled Urine Cocaine Screen Cancelled U Marijuana (THC) Screen Cancelled Ethyl Alcohol 137 H ( - 10) mg/dL Discharge Plan Departure Patient Disposition: Home Clinical Impression: Alcohol use disorder, mild, abuse Cough Qualifiers: Cough type: chronic Qualified Code(s): R05.3 - Chronic cough Instructions: DI for Alcohol Use Disorder Prescriptions: New chlordiazepoxide HCl 25 mg capsule 25 mg PO .ASDIR Qty: 15 0RF Rx Instructions: Day 1: 50mg po q6h Day 2: 25mg po q6h Day 3: 25mg po q12h Day 4: 25mg once at night No Action aspirin 81 mg tablet,delayed release (DR/EC) 81 mg PO DAILY bupropion HCl 150 mg tablet sustained-release 12 hr 150 mg PO QAM citalopram 20 mg tablet 20 mg PO DAILY hydroxyzine pamoate 25 mg/5 mL suspension PO levothyroxine 50 mcg capsule 50 mcg PO DAILY losartan 50 mg tablet 50 mg PO DAILY omeprazole 20 mg capsule,delayed release(DR/EC) 20 mg PO DAILY Referrals: Laila Mariee MD [Primary Care Provider] - Stand Alone Forms: Patient Portal/API
[2023-04-26 07:49] LABS: Appearance Urine UA CLEAR; Bilirubin Urine UA NEGATIVE (NEGATIVE); Color Urine UA YELLOW; Glucose Urine UA NEGATIVE (Negative); Ketones Urine UA NEGATIVE (NEGATIVE); Leukocyte Esterase Urine UA NEGATIVE (NEGATIVE); Nitrite Urine UA NEGATIVE (Negative); Occult Blood Urine UA NEGATIVE (Negative); Protein Urine UA 1+ (Negative); Specific Gravity Urine UA 1.015 (1.000-1.035)
[2023-04-26] MEDS: FOLIC ACID 1 MG TABLET PO (07:53)
[2023-04-26] MEDS: SODIUM CHLORIDE 0.9% 1,000 ML 1000 ML IV (07:55)
[2023-04-26] MEDS: THIAMINE 100 MG in SODIUM CHLORIDE 0.9% 100 ML 404 MG IV (07:55)
[2023-04-26 08:17] LABS: Bacteria Urine None Seen; Culture Indicated Urine Cult Not Indicated; RBC Urine 0-1/HPF (0-5/HPF); Squamous Epithelial Cell Urine 10-30 /HPF (0-5/HPF); WBC Urine 0-1/HPF (0-5/HPF)
== END 2023-04-26 09:07 | disposition home or self-care (01) ==
PROVIDERS: Emergency Medicine; Emergency Provider Emergency Medicine; PCP Family Medicine
DX: F10.129 Alcohol abuse with intoxication, unspecified (principal); Y90.6 Blood alcohol level of 120-199 mg/100 ml; R05.3 Chronic cough
CPT/HCPCS: 36415; 71045; 80053; 80320; 81001; 83690; 85025; 85610; 85730; 93005; 96360; 99284

== ENCOUNTER 2023-06-07 13:59 | Emergency (ER) | payer MEDICARE, SELFPAY ==
[2023-06-07 14:03] VITALS: BP 186/97; PULSE 94; RESP 20; TEMP 37.1; O2SAT 99; BMI 21.4
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
== END 2023-06-07 16:07 | disposition home or self-care (01) ==
PROVIDERS: Emergency Provider Student in an Organized Health Care Education/Training Program; PCP Family Medicine
DX: S50.11XA Contusion of right forearm, initial encounter (principal); Y08.89XA Assault by other specified means, initial encounter
CPT/HCPCS: 99281; 99282

== ENCOUNTER 2023-11-18 10:24 | Observation (INO) | payer MEDICARE, MEDICAID, SELFPAY ==
[2023-11-18 10:41] VITALS: BP 175/90; PULSE 86; RESP 20; TEMP 36.9; O2SAT 98; BMI 24.9
--- NOTE | 2023-11-18 10:49 | DI.RAD.S_ITS ---
PROCEDURE: XR CHEST 1V INDICATIONS: chest pain TECHNIQUE: One view of the chest was acquired. COMPARISON: [facility], CR, XR CHEST 1V, 04/26/2023, 7:38. FINDINGS: Surgical changes and devices: None. Lungs and pleura: Lungs are clear. No pleural effusions or pneumothorax. Mediastinum: Mediastinal contours appear normal. Heart size is normal. Bones and chest wall: No suspicious bony lesions. Overlying soft tissues appear unremarkable. IMPRESSION: No acute cardiopulmonary abnormality is seen. Dictated by: Julian Chau M.D. on 11/18/2023 at 11:14 Approved by: Julian Chau M.D. on 11/18/2023 at 11:14
[2023-11-18 10:56] LABS: Add Manual Diff / Slide Review NO; Basophils Absolute Auto 200 /uL (0-100); Basophils Percent Auto 2.8 % (0-2); Eosinophils Absolute Auto 100 /uL (0-450); Eosinophils Percent Auto 1.9 % (2-4); Hematocrit 29.6 % (36-46); Hemoglobin 10.1 g/dL (12.0-16.0); Lymphocytes Absolute Auto 900 /uL (1100-4500); Lymphocytes Percent Auto 15.2 % (25-40); Mean Corpuscular HGB Conc 33.9 % (30-36); Mean Corpuscular Hemoglobin 34.8 PG (26-34); Mean Corpuscular Volume 102.6 fL (80-100); Monocytes Absolute Auto 700 /uL (0-900); Monocytes Percent Auto 12.5 % (3-14); Neutrophils Absolute Auto 4100 /uL (1500-7000); Neutrophils Percent Auto 67.6 % (50-75); Platelet Count 220 X10^3/uL (150-400); Red Blood Cell Count 2.89 X10^6/uL (4.0-5.2); Red Cell Distribution Width 14.8 % (11.6-14.8)
[2023-11-18 10:57] LABS: INR 1.1 (0.9-1.3); Prothrombin Time 12.7 SECONDS (9.4-12.5)
[2023-11-18 11:00] LABS: PTT Partial Thromboplastin Tim 34 SECONDS (25.1-36.5)
[2023-11-18 11:02] LABS: Alanine Aminotransferase 39 IU/L (<35); Albumin 4.9 g/dL (3.5-5.0); Albumin Globulin Ratio 1.3 (1.0-2.8); Alkaline Phosphatase 84 U/L (38-126); Aspartate Aminotransferase 69 IU/L (14-36); BUN Creatinine Ratio 17.6 (6-22); Blood Urea Nitrogen 16 mg/dL (7-17); Carbon Dioxide 30 mmol/L (22-32); Chloride 98 mmol/L (98-107); Creatine Kinase 57 U/L (30-135); Estimated Glomerular Filt Rate > 60 mL/min (>60); Globulin 3.7 g/dL (1.7-4.1); Glucose 151 mg/dL (80-110); HEMOLYSIS < 15 (0-50); Lipase 79 U/L (23-300); Magnesium 1.8 mg/dL (1.6-2.3); Potassium 4.2 mmol/L (3.4-5.1); Sodium 137 mmol/L (137-145); Total Protein 8.6 g/dL (6.3-8.2)
[2023-11-18 11:14] LABS: Troponin I < 0.012 ng/mL (0.01-0.034)
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
[2023-11-18 12:36] LABS: Ethanol (ETOH) < 10 mg/dL
--- NOTE | 2023-11-18 12:37 | DI.CT.S_ITS ---
PROCEDURE: CT HEAD/BRAIN WO CON INDICATIONS: etoh difficulty walking TECHNIQUE: Noncontrast 4.5 mm thick angled axial sections acquired from the foramen magnum to the vertex, with coronal and sagittal reformats. For radiation dose reduction, the following was used: automated exposure control, adjustment of mA and/or kV according to patient size. COMPARISON: None. FINDINGS: Image quality: Diagnostic. CSF spaces: Basal cisterns are patent. No extra-axial fluid collections. The ventricles are symmetric in size and shape. Brain: No intracranial bleeds or masses. There is cerebral volume loss for age, with resultant ventricular and sulcal prominence. There are periventricular and deep white matter chronic small vessel ischemic changes. There is intracranial internal carotid artery atherosclerosis. Skull and face: Calvarium and visualized facial bones appear intact, without suspicious lesions. Sinuses: Visualized sinuses and mastoids are clear. IMPRESSION: No acute intracranial pathology. Dictated by: Julian Chau M.D. on 11/18/2023 at 13:10 Approved by: Julian Chau M.D. on 11/18/2023 at 13:12
[2023-11-18] MEDS: PHENobarbital 65 MG/ML VIAL 130 MG IV (12:48)
[2023-11-18 12:58] LABS: Ur Creatinine Normal (Normal); Ur Specific Gravity Normal (Normal); Urine pH Normal (Normal)
[2023-11-18 12:59] LABS: UR Morphine/Opiate cutoff 300 Negative (Negative); Urine Amphetamines Negative (Negative); Urine Barbiturates Negative (Negative); Urine Benzodiazepines Negative (Negative); Urine Cocaine Negative (Negative); Urine MDMA Negative (Negative); Urine Methadone Negative (Negative); Urine Methamphetamines Negative (Negative); Urine Oxycodone Negative (Negative); Urine Phencyclidine Negative (Negative); Urine Tetrahydrocannabinol Negative (Negative); Urine Tricyclic Antidepressant Negative (Negative)
[2023-11-18 13:53] VITALS: BP 186/84; PULSE 81; RESP 19; O2SAT 96
--- NOTE | 2023-11-18 13:54 | PC.NURSE ---
Pt reports diff walking x2 days; pt reports whole body tremors
[2023-11-18] MEDS: LORazepam 2 MG/ML INJ 1 MG IV (14:19)
[2023-11-18] MEDS: THIAMINE 200 MG in SODIUM CHLORIDE 0.9% 100 ML 408 MG IV (14:20)
--- NOTE | 2023-11-18 14:54 | PC.NURSE ---
Pt attempted to ambulate w/ gait belt and RN assist. Pt unsuccessful. Pt primarily having center of gravity behind feet. Pt attempted to be educated on proper body mechanics. Pt still unable to ambulate well w/o max assist. notified.
[2023-11-18 14:55] LABS: Thyroid Stimulating Hormone 18.8 uIU/mL (0.47-4.68)
--- NOTE | 2023-11-18 15:29 | PC.NURSE ---
Reassess; decrease in tremors w/ medicine. Continued difficulty w/ ambulating.
[2023-11-18 15:30] LABS: Folate > 20.0 ng/mL (2.76-20.0)
--- NOTE | 2023-11-18 15:30 | DI.MRI.S_ITS ---
PROCEDURE: MR STROKE Pre- and post-contrast brain MRI, non-contrast brain MR angiogram, pre- and postcontrast neck MR angiogram INDICATIONS: ataxia, r/o CVA TECHNIQUE: Brain: Noncontrast axial T1 spin echo, axial T2 fast spin echo, sagittal and axial FLAIR, coronal T2 fast spin echo, axial gradient echo, axial diffusion and ADC through the brain. After the administration of contrast, axial 3D VIBE of the cranial vasculature and brain. Brain MRA: Non-contrast 3-D time of flight MR angiogram, with multiple wuquabe-qbnjydlzk-lvlklidcrc (MIP) reformats performed. Neck MRA: Axial and sagittal TruFISP through the neck. Coronal dynamic MR angiogram during administration of contrast in the arterial and venous phases, with 3-dimenstional ggtyftm-pcueturiz-jyskbjrmet (MIP) reformats constructed from subtraction images. COMPARISON: [facility], CT, CT HEAD/BRAIN WO CON, 11/18/2023, 12:43. FINDINGS: Image quality: Excellent. BRAIN: CSF spaces: Ventricles are normal in size and shape. Basal cisterns are patent. No extra-axial fluid collections. Brain: No intracranial bleeds or mass effects. There is mild age-related global volume loss and chronic microvascular ischemic changes. Hebert-white matter interface is normal. Diffusion weighted images show no acute infarct. Brainstem appears normal. Normal intravascular flow voids are present. No abnormal intracranial enhancement. Skull and face: Calvarial marrow signal is normal. Orbits appear normal. Sinuses: Sinuses and mastoids are clear. BRAIN MR ANGIOGRAM: Anterior circulation: Intracranial internal carotid arteries are normal in size and enhancement. The flow within the paired anterior cerebral arteries is normal and symmetric. The flow within the middle cerebral arteries is normal and symmetric. The anterior communicating artery is seen. No stenoses, occlusions, or aneurysms. Posterior circulation: The visualized portions of the vertebral arteries demonstrate normal caliber, and join to form a normal appearing basilar artery. The flow within the posterior cerebral arteries is normal and symmetric. No stenoses, occlusions, or aneurysms. NECK MR ANGIOGRAM: Carotids: Great vessels demonstrate a conventional anatomy as they arise from the aortic arch. The origins of the common carotid arteries appear patent. The calibers and courses of both common carotid arteries are normal. The bifurcation regions appear normal bilaterally. The internal carotid arteries demonstrate normal course and caliber. Posterior circulation: The origins of the vertebral arteries appear patent. More superior portions of both vertebral arteries demonstrate normal course and caliber, and join to form a normal appearing basilar artery. Miscellaneous: Subclavian arteries appear patent. Pre-contrast images through the neck show no soft tissue abnormalities. IMPRESSION: BRAIN MRI: 1. No acute or subacute infarct. No acute intracranial abnormalities. 2. Mild age-related global volume loss and microvascular ischemic changes. BRAIN MR ANGIOGRAM: No significant arterial abnormalities. NECK MR ANGIOGRAM: No significant arterial abnormalities. Dictated by: Dante Otoole M.D. on 11/18/2023 at 17:19 Approved by: Dante Otoole M.D. on 11/18/2023 at 17:26
[2023-11-18 15:53] VITALS: BP 167/75; PULSE 86; RESP 19; O2SAT 100
[2023-11-18 16:03] VITALS: BMI 24.0
[2023-11-18 16:20] VITALS: BP 145/82; PULSE 88; RESP 19; TEMP 36.6; O2SAT 97; O2SAT 99
[2023-11-18 16:24] VITALS: BMI 24.0
--- NOTE | 2023-11-18 18:27 | P.HP_ITS ---
History of Present Illness History of Present Illness Date Patient Seen: 11/18/23 Time Patient Seen: 18:35 Chief complaint: Tremors t-2 days Narrative: 68 F with PMH of EtOH use, HTN, hypothyroid, depression GERD who presented with complaint of difficulty walking. She cannot walk more than a couple of feet without significant help. She had been drinking a fifth for years, has been trying to cut down for the last 2 weeks to wean off alcohol when starting 2 days ago she had difficulty walking, difficulty with speech, shaking / tremors that will wax and wane. She denies nausea or vomiting. She denies dizziness. Denies prior admissions for EtOH use. No fever, chills, abdominal pain, lower extremity edema. Denies focal numbness, tingling, or weakness. Initially patient was hypertensive, remainder of her vitals were unremarkable. She was given phenobarbital and ativan with mild improvement but still continued to have difficulty walking. She was admitted for further management. [facility] Medical History Hypothyroidism HTN (hypertension) Obstructive sleep apnea (adult) (pediatric) Social History Smoking Status: Never smoker alcohol intake: current Meds Home Medications and Allergies Home Medications Medication Instructions Recorded Confirmed Type bupropion HCl 150 mg tablet,12 hr 150 mg PO QAM 01/12/22 11/18/23 History sustained-release citalopram 20 mg tablet 20 mg PO DAILY 01/12/22 11/18/23 History hydroxyzine pamoate 25 mg/5 mL 25 mg PO DAILY 01/12/22 11/18/23 History oral suspension levothyroxine 50 mcg capsule 50 mcg PO DAILY 01/12/22 11/18/23 History losartan 50 mg tablet 50 mg PO DAILY 01/12/22 11/18/23 History omeprazole 20 mg capsule,delayed 20 mg PO DAILY 01/12/22 11/18/23 History release chlordiazepoxide HCl 25 mg capsule 25 mg PO .ASDIR #15 caps 04/26/23 11/18/23 Rx Allergies Allergy/AdvReac Type Severity Reaction Status Date / Time No Known Drug Allergies Allergy Verified 02/19/22 11:48 Review of Systems Review of Systems Narrative: All other systems reviewed with the patient and are negative unless otherwise stated. Exam Vital Signs (past 8 hours): - 11/18/23 10:41 11/18/23 13:53 11/18/23 15:17 Temperature 98.5 F Pulse Rate 86 81 Respiratory Rate 20 19 Blood Pressure 175/90 H 186/84 H Pulse Oximetry 98 96 Oxygen Delivery Method Room Air Room Air Room Air Oxygen Flow Rate 11/18/23 15:53 11/18/23 16:20 11/18/23 16:20 Temperature 97.8 F Pulse Rate 86 88 Respiratory Rate 19 19 Blood Pressure 167/75 H 145/82 H Pulse Oximetry 100 97 99 Oxygen Delivery Method Room Air Oxygen Flow Rate 0 0 Oxygen Delivery Method Room Air Oxygen Flow Rate 0 Narrative Exam Narrative: General:? Patient is well developed and well nourished, in no distress at this time. HEENT:? Normocephalic, atraumatic, extraocular muscles intact, oral pharynx is clear and mucous membranes are moist. Neck: supple and symmetric, trachea is midline, no cervical adenopathy. Negative for JVD Chest:? Normal AP diameter and contour without kyphoscoliosis, no tachypnea, equal chest rise bilaterally. Lungs:? CTA b/l no wheezing rhonchi or rales. Cardio:?RRR no m/r/g. Abdomen: S NT ND. Musculoskeletal:? Muscle strength and tone are equal within normal limits, no deformity. Extremities: No edema or joint effusions. No cyanosis or clubbing. Skin:? Pale,? Warm to touch,dry and intact without rashes, ulcerations or petechiae.? Neuro:? Alert and orientated x3,? sensation to touch intact in all extremities, no gross deficits noted of cranial nerves. Mild tremulousness and tongue fasciculations, strength is grossly +5/5 bilaterally and equal. Psych:? Patient has a well-kept appearance, appropriate affect, mental status attitude thought context and judgment are appropriate for age. Objective Labs 11/19/23 05:35 11/19/23 05:35 Labs: Laboratory Results - last 24 hr 11/18/23 11/18/23 10:36 12:13 WBC 6.0 RBC 2.89 L Hgb 10.1 L Hct 29.6 L MCV 102.6 H MCH 34.8 H MCHC 33.9 RDW 14.8 Plt Count 220 Neut % (Auto) 67.6 Lymph % (Auto) 15.2 L [place] % (Auto) 12.5 Eos % (Auto) 1.9 L Baso % (Auto) 2.8 H Neut # (Auto) 4100 Lymph # (Auto) 900 L [place] # (Auto) 700 Eos # (Auto) 100 Baso # (Auto) 200 H PT 12.7 H INR 1.1 APTT 34 Sodium 137 Potassium 4.2 Chloride 98 Carbon Dioxide 30 BUN 16 Creatinine 0.91 Estimated GFR > 60 BUN/Creatinine Ratio 17.6 Glucose 151 H Calcium 10.0 Magnesium 1.8 Total Bilirubin 1.0 AST 69 H ALT 39 H Alkaline Phosphatase 84 Total Creatine Kinase 57 Troponin I < 0.012 Total Protein 8.6 H Albumin 4.9 Globulin 3.7 Albumin/Globulin Ratio 1.3 Lipase 79 Folate > 20.0 H TSH 18.8 H U Opiates 300ng/mL cut Negative Ur Oxycodone Screen Negative Urine Methadone Screen Negative Ur Barbiturates Screen Negative U Tricyclic Antidepress Negative Ur Phencyclidine Scrn Negative Ur Amphetamines Screen Negative U Methamphetamines Scrn Negative Ur MDMA Scrn (Ecstasy) Negative U Benzodiazepines Scrn Negative Urine Cocaine Screen Negative U Marijuana (THC) Screen Negative Urine pH Normal Urine Specific [place] Normal Ethyl Alcohol < 10 Ur Creatinine Normal Assessment & Plan Assessment & Plan narrative: 1. Ataxia - suspect related to alcohol use, with acute alcohol withdrawal and tremulousness. Will treat as noted below. - cannot definintively rule out CVA, will check MR brain without contrast. - PT/OT if not worsening from withdrawal perspective. - Possibly b12 deficient with some symptoms of peripheral neuropathy on report, will check B12 tomorrow. - continue MVI, Folate, Thiamine supplementation. Consider high dose thiamine depending on progress with alcohol withdrawal and MR findings. 2. Alcohol withdrawal, mild alcoholic hepatitis - start librium 25 mg TID for mild withdrawal, taper as able - CIWA protocol with as needed ativan ordered 3. Hypothyroidism - TSH 18.8. Had dose increased approx. 1 month ago per patient. Will increase further to 75. Repeat TSH in 6 weeks. 4. HTN - continue home losartan 5. Depression - continue home citalopram and wellbutrin 6. GERD - continue home PPI Code: DNR as discussed with patient. surrogate is patient's room-mate/friend DVT: Lovenox daily I have utilized all available immediate resources to obtain, update, or review the patient's current medications. Dispo: patient admitted under observation initially pending above evaluations, if symptoms persist despite initial treatments will change to inpatient. Unclear if will be able to discharge home or possible SNF, will have PT/OT evaluations. Additional history obtained via discussions with the ER provider. These discussions contributed to the creation of the above assessment and plan. I have reviewed patient's presenting documentation, labs, and imaging personally. Quality VTE Deep Vein Thrombosis/Pulmonary Embolism Present on Admission: No
[2023-11-18] MEDS: chlordiazePOXIDE 25 MG CAPSULE PO ×2 (18:30→20:41)
[2023-11-18 20:20] VITALS: O2SAT 97
[2023-11-18 20:38] VITALS: BP 114/72; PULSE 93; RESP 17; TEMP 36.2; O2SAT 97
[2023-11-18] MEDS: buPROPion SR 150 MG TAB PO (20:41)
[2023-11-18] MEDS: hydrOXYzine HCL 25 MG TABLET PO (21:23)
[2023-11-19] VITALS (11 sets, daily range): BP systolic 109–148; BP diastolic 69–99; PULSE 79–101; RESP 14–20; TEMP 35.8–37.1; O2SAT 94–97
[2023-11-19] MEDS: LEVOTHYROXINE 75 MCG TABLET PO (05:02)
[2023-11-19] MEDS: PANTOPRAZOLE DR 20 MG TABLET PO (06:01)
[2023-11-19 06:07] LABS: Add Manual Diff / Slide Review NO; Basophils Absolute Auto 100 /uL (0-100); Basophils Percent Auto 1.1 % (0-2); Eosinophils Absolute Auto 200 /uL (0-450); Eosinophils Percent Auto 2.6 % (2-4); Hematocrit 27.2 % (36-46); Hemoglobin 9.3 g/dL (12.0-16.0); Lymphocytes Absolute Auto 1100 /uL (1100-4500); Lymphocytes Percent Auto 19.7 % (25-40); Mean Corpuscular HGB Conc 34.2 % (30-36); Mean Corpuscular Hemoglobin 34.9 PG (26-34); Mean Corpuscular Volume 102.1 fL (80-100); Monocytes Absolute Auto 700 /uL (0-900); Monocytes Percent Auto 12.5 % (3-14); Neutrophils Absolute Auto 3700 /uL (1500-7000); Neutrophils Percent Auto 64.1 % (50-75); Platelet Count 196 X10^3/uL (150-400); Red Blood Cell Count 2.67 X10^6/uL (4.0-5.2); Red Cell Distribution Width 14.3 % (11.6-14.8); White Blood Cell Count 5.7 X10^3/uL (4.5-11.0)
[2023-11-19 06:08] LABS: Alanine Aminotransferase 31 IU/L (<35); Albumin 4.5 g/dL (3.5-5.0); Albumin Globulin Ratio 1.4 (1.0-2.8); Alkaline Phosphatase 75 U/L (38-126); Aspartate Aminotransferase 50 IU/L (14-36); BUN Creatinine Ratio 15.5 (6-22); Bilirubin Total 0.9 mg/dL (0.2-1.3); Blood Urea Nitrogen 16 mg/dL (7-17); Calcium 9.4 mg/dL (8.4-10.2); Carbon Dioxide 29 mmol/L (22-32); Chloride 101 mmol/L (98-107); Estimated Glomerular Filt Rate 60 mL/min (>60); Globulin 3.3 g/dL (1.7-4.1); Glucose 95 mg/dL (80-110); HEMOLYSIS < 15 (0-50); Potassium 3.9 mmol/L (3.4-5.1); Sodium 138 mmol/L (137-145); Total Protein 7.8 g/dL (6.3-8.2)
[2023-11-19 06:57] LABS: Vitamin B12 Reflex MMA if <400 615 pg/mL (239-931)
[2023-11-19] MEDS: ENOXAPARIN 40 MG/0.4 ML SYRINGE SUBCUT (08:38)
[2023-11-19] MEDS: MULTIVITAMIN 1 TABLET 1 TAB PO (08:39)
[2023-11-19] MEDS: chlordiazePOXIDE 25 MG CAPSULE PO ×3 (08:39→20:12)
[2023-11-19] MEDS: FOLIC ACID 1 MG TABLET PO (08:39)
[2023-11-19] MEDS: CITALOPRAM 10 MG TABLET 20 MG PO (08:39)
[2023-11-19] MEDS: THIAMINE 100 MG TABLET PO (08:39)
[2023-11-19] MEDS: LOSARTAN 50 MG TABLET PO (08:39)
[2023-11-19] MEDS: buPROPion SR 150 MG TAB PO (08:40)
--- NOTE | 2023-11-19 14:20 | PT.IIE ---
Medical History (Last Reviewed 11/18/23 @ 18:27 by Tru Julian DO) HTN (hypertension) Hypothyroidism Obstructive sleep apnea (adult) (pediatric) Physical Therapy Inpatient Evaluation/Re-Eval M1 PT/OT-IP Prior Functional Status Start: 11/19/23 16:52 Freq: NEEDED Status: Active Protocol: Document 11/19/23 14:20 AB (Rec: 11/19/23 17:09 AB [id number]) Medical Review Prior Functional Status Medical History Reviewed Yes Communication able to make needs known; needs repeated cues Mobility and Gait pt stated that she was independent with all mobilities and ambulation without AD but started using a SPC for the last week due to feeling unsteady Activities of Daily Living and IADL's per OT note: Pt states prior completely independent with all ADL and IADl needs. Social History Household Members friend(s) Living Arrangements House Number of Floors (Floors) One Floor Number of Stairs To Enter/Railing? 1 step to enter Home Environment Standard Height Toilet,Tub/ Shower Home Equipment Straight Cane,Hand Held Shower ,Grab Bars In Shower Additional Social History Comment Pt states has a safety bar over the tub to use. M2 PT-IP Current Condition Start: 11/19/23 16:52 Freq: NEEDED Status: Active Protocol: Document 11/19/23 14:20 AB (Rec: 11/19/23 17:09 AB [id number]) Physical Therapy Current Condition Current Condition Evaluation Date 11/19/23 Treatment Diagnosis alcohol withdrawal; difficulty in walking Onset Date 11/18/23 M3 PT-IP Subjective Start: 11/19/23 16:52 Freq: NEEDED Status: Active Protocol: Document 11/19/23 14:20 AB (Rec: 11/19/23 17:09 AB [id number]) Subjective Physical Therapy Visit Type Type Initial Evaluation Visit Start Time 14:20 Visit Stop Time 15:00 Number of HORSE TREKKING GUIDE Visits 0 Physical Therapy Visit Comments Patient Comments agreeable to do PT M4 PT-IP Mobility and Gait Start: 11/19/23 16:52 Freq: NEEDED Status: Active Protocol: Document 11/19/23 14:20 AB (Rec: 11/19/23 17:09 AB [id number]) PT-Bed Mobility Assessment Supine to Sit Supine to Sit Maximum Assistance PT-Transfer Assessment Sit to and From Stand Sit to and from Stand Maximum Assistance,1 Person Assistance,2 Person Assistance ,Use of Upper Extremities Equipment Transfer Assistive Device Gait Belt,Front Wheeled Walker Orthotic/Prosthetic Devices or Brace: No Transfers Transfer Destination Chair Transfer Technique Stand Step Pivot Transfer Ability Level of Assist Maximum Assistance,1 Person Assistance,2 Person Assistance ,Use of Upper Extremities Comments Mobility Comments pt supine in bed and agreeable to do PT. obtained PLOF and home set up from pt. pt with slight confusion and tends to perseverate. tremulous with movement and LE movement during MMT and mobility. BP: 137/83 pt completed supine to sit max A and max cues. required initial mod A for initial sitting balance with increase posterior trunk lean. positioned pt on EOB and able to sit CGA. completed sit to stand max A x 1-2 and max cues . presents with increase posterior trunk lean and cues to repositon. pt stated that she cannot control her body. pt was able to reposition to midline with mod to max A and max cues for COG and use of FWW for support. instructed pt to take steps but stated that she is not able. pt sat on EOB again. NAC in room to assist. pt completed sit to stand from EOB max A x 1-2 and max cues. able to step transfer to chair using FWW max A x 1-2 and max cues. pt agreed to ambulate. sit to stand from chair max A x 1-2 and max cues and was able to ambulate in room using FWW mod to max A and max cues ~ 5 ft. presents with shuffling gait and max cues for safety. positioned pt back on chair. call light and table placed within reach. pt required repeated cues with all tasks. Gait Assessment Gait Gait Assistance Required: Maximum Assistance,1 Person Assist,2 Person Assist Distance (Feet) 5 Able to Maintain Weight Bearing Status Yes During Gait Assistive Devices Assistive Device Gait Belt,Front Wheeled Walker Orthotic/Prosthetic Devices or Brace: No Gait Deviations General Gait Pattern Ataxic,Decreased Stride Length ,Decreased Feet Clearance Factors Limiting Gait Function Factors Limiting Gait Function Decreased Activity Tolerance, Decreased Strength,Difficulty Following Directions, Incoordination,Poor Balance, Poor Safety Awareness PT-Balance Assessment Sitting Balance and Reactions Static Sitting Balance Ability Fair Dynamic Sitting Balance Ability Poor Standing Balance and Reactions Static Standing Balance Ability Poor Dynamic Standing Balance Ability Poor Device Used FWW M5 PT-IP Objective Assessments Start: 11/19/23 16:52 Freq: NEEDED Status: Active Protocol: Document 11/19/23 14:20 AB (Rec: 11/19/23 17:09 AB [id number]) Orientation Orientation/Cognition Level of Alertness Alert Orientation Name,Place,Situation Safety Awareness Decreased Safety Awareness Memory Description Short Term Impaired Comments with slight confusion Gross Range of Motion Lower Extremity ROM Assessment Within Functional Limits Strength Lower Extremity Strength Assessment Within Functional Limits M6 PT-IP Treatment Start: 11/19/23 16:52 Freq: NEEDED Status: Active Protocol: Document 11/19/23 14:20 AB (Rec: 11/19/23 17:09 AB [id number]) Physical Therapy Treatment Education Education Provided Safety M7 PT-IP Assessment and Plan Start: 11/19/23 16:52 Freq: NEEDED Status: Active Protocol: Document 11/19/23 14:20 AB (Rec: 11/19/23 17:09 AB [id number]) PT Summary Assessment and Plan Potential Rehabilitation Potential Fair Status of Condition at Evaluation Evolving Summary Impairments Pain,ROM,Strength,Balance, Coordination,Sensation,Tone, Cognition,Bed Mobility, Transfers,Gait,Activity Tolerance Assessment Summary pt is a 68 y/o F who presented to the ED due to tremors/ shaking and difficulty walking . pt admitted for alcohol withdrawal. pt requiring max A x 1-2 with mobility and max cues with all tasks. pt needing a FWW a this time and has decrease activity tolerance. Recommending 2 person assist with nursing staff for safety. d/c plan depending on progress but at this time will need SNF rehab. will continue to assess. Goals Bed Mobility Goal Independent Transfer Goal Minimal Assistance,Front Wheeled Walker Gait Goal Minimal Assistance,Front Wheel Walker Gait Distance 50 Other Goals improve transfers and ambulation using FWW ~ 250 ft SBA up/down 1 step using FWW SBA. Days to Meet Goals 10 Frequency of Treatment Frequency Of Treatment Once a Day Treatment Plan Physical Therapy Treatment Plan Bed Mobility Training,Transfer Training,Gait Training, Therapeutic Exercise,Balance Retraining,Discharge Planning, Hot or Cold Pack,Neuromuscular Re-ed,Coordination Retraining Precautions Other Precautions falls Recommendations To Nursing Amount of Assist Needed 2 Person Assist Discharge Recommendations PT Discharge Recommendations SNF Rehab Equipment Needed for Home Before FWW if pt goes home and not Discharge safe with SPC Transportation Needs at Discharge Wheelchair/Cabulance
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
--- NOTE | 2023-11-19 15:57 | OT.IP.EVAL ---
Past Medical History (Last Reviewed 11/18/23 @ 18:27 by Tru Julian DO) HTN (hypertension) Hypothyroidism Obstructive sleep apnea (adult) (pediatric) Occupational Therapy Inpatient Evaluation/Re-Eval M1 PT/OT-IP Prior Functional Status Start: 11/19/23 16:01 Freq: NEEDED Status: Active Protocol: Document 11/19/23 16:02 [facility] (Rec: 11/19/23 16:19 [facility] [id number]) Medical Review Prior Functional Status Medical History Reviewed Yes Communication Independent Mobility and Gait Pt states has been using her SPC lately due to decreased balance. Activities of Daily Living and IADL's Pt states prior completely independent with all ADL and IADl needs. Social History Household Members significant other Living Arrangements House Number of Stairs To Enter/Railing? Pt states has no steps to enter the house. Home Environment Standard Height Toilet,Tub/ Shower Home Equipment Straight Cane Additional Social History Comment Pt states has a safety bar over the tub to use. M2 OT-IP Current Condition Start: 11/19/23 16:01 Freq: Status: Active Protocol: Document 11/19/23 16:02 [facility] (Rec: 11/19/23 16:19 [facility] [id number]) Occupational Therapy Current Condition Current Condition Evaluation Date 11/19/23 Treatment Diagnosis Ataxia, ETOH withdrawal Diagnosis Onset Date 11/18/23 M3 OT- IP Subjective and Pain Start: 11/19/23 16:01 Freq: Status: Active Protocol: Document 11/19/23 16:02 [facility] (Rec: 11/19/23 16:19 [facility] [id number]) OT- Subjective Occupational Therapy Visit Type Type Initial Evaluation Visit Start Time 15:30 Visit Stop Time 15:58 Occupational Therapy Visit Comments Patient Comments Pt agree to get up. Patient/Caregiver Goals TO go home OT Pain Assessment Pain When Pain Assessed At Rest Pain Present Pain Present Denied Pain M4 OT- IP ADL's Start: 11/19/23 16:01 Freq: Status: Active Protocol: Document 11/19/23 16:02 [facility] (Rec: 11/19/23 16:19 [facility] [id number]) OT [id number] Comments OT Self-Feeding Comments Pt states had no issues. OT ADL-Grooming Comments OT Grooming Comments Pt states did prior while seated. OT ADL-Oral Care Comments Oral Care Comments Pt states did prior. OT ADL-Dressing General Eval Lower Body Dressing Ability Standby Assistance,Moderate Assistance Comments OT Dressing Comments Pt able to cross her legs to dori/doff her socks. Pt however if standing will need MAXA poor balance for getting clothing over her hips. OT ADL-Toileting Comments OT Toileting Comments Pt states did prior. Pt would benefit from a BSC OT ADL-Bathing Comments OT Bathing Comments Pt will benefit from tub bench at home to use. M5 OT- IP IADL's Start: 11/19/23 16:01 Freq: Status: Active Protocol: Document 11/19/23 16:02 [facility] (Rec: 11/19/23 16:19 [facility] [id number]) OT-Instrumental Activities of Daily Living Deficits IADL Deficits Identified Deficits Home Safety Awareness Home Safety Comments Pt insistent that things will be fine at home. Medication Management Medication Management Comments Pt states does everything on her own. Money Management Money Management Comments Pt states does everything on her own. Meal Preparation Meal Preparation Comments Pt will benefit from assist. Division Service Manager Division Service Manager Comments Pt will benefit from assist. Driving Driving Concerns Identified Regarding Safety M6 OT- IP Functional Cognition Start: 11/19/23 16:01 Freq: Status: Active Protocol: Document 11/19/23 16:02 [facility] (Rec: 11/19/23 16:19 [facility] [id number]) Cognitive Factors Limiting Selfcare Function Cognitive Ability Level of Alertness Alert Patient Orientation Name,Place,Situation Attention Span Ability Capable of Focused Attention, Unable to Sustain Attention Ability to Follow Commands Able to Follow One Step Commands with Increased Time, Able to Follow One Step Commands with Repetition Memory Description Short Term Impaired Safety Awareness Underestimates Need for Assistance Cognitive Comments Cognitive Assessment Comments Pt increased time to comprehend directions and a bit impulsive at times. Pt needing MAX vc for FWW use and hand placement in order to stand up. Pt having difficulty to control her movements especially with her legs. Pt will benefit from a cognitive assessment. OT- Vision and Hearing OT- Vision Assessment Visual Acuity Glasses For Reading M7 OT- IP Mobility and Balance Start: 11/19/23 16:01 Freq: Status: Active Protocol: Document 11/19/23 16:02 [facility] (Rec: 11/19/23 16:19 [facility] [id number]) OT- Bed Mobility Assessment Supine to Sit Supine to Sit Assist Standby Assistance Sit to Supine Sit to Supine Assist Standby Assistance OT-Transfer Assessment Sit to and From Stand Sit to and from Stand Moderate Assistance Transfers Transfer Ability Moderate Assistance Technique Transfer Destination Bed,Chair Devices Transfer Assistive Devices Gait Belt,Front Wheeled Walker Comments Mobility Comments Pt very unsteady on her feet and difficulty to control her legs and very heavy handed on the FWW for transfers. Pt having difficulty to keep her feet form sliding forwards.Pt's weight tends to be on her heels when coming to stand. For safety best to have 2 person assist at this tme. Pt states has been considering getting a wc to use outside and fww for inside. OT- Balance Assessment Sitting Balance and Reactions Static Sitting Balance Ability Good Dynamic Sitting Balance Ability Fair Standing Balance and Reactions Static Standing Balance Ability Poor Dynamic Standing Balance Ability Poor M8 OT- IP Objective Assessments Start: 11/19/23 16:01 Freq: Status: Active Protocol: Document 11/19/23 16:02 [facility] (Rec: 11/19/23 16:19 [facility] [id number]) OT Gross Range of Motion Upper Extremity Range of Motion Assessment Within Functional Limits OT Strength Upper Extremity Strength Assessment Within Functional Limits OT- Coordination Assessment Upper Extremity Finger to Nose Test Bilateral UE Impaired Finger Tapping Test Bilateral UE Impaired Comments Coordination Comments Pt needing increased time for finger to thumb opposition. OT-Muscle Tone Assessment Comments Muscle Tone Comments Pt mildly tremulous with her hands and legs. M9 OT- IP Assessment and Plan Start: 11/19/23 16:01 Freq: Status: Active Protocol: Document 11/19/23 16:02 [facility] (Rec: 11/19/23 16:19 [facility] [id number]) OT Summary Assessment and Plan Potential Rehabilitation Potential Good Analytic Complexity at Evaluation Moderate Summary OT Impairments Strength,Balance,Coordination, Functional Cognition, Functional Mobility,Grooming, Dressing,Toileting,Bathing, Toilet Transfers,Shower Transfers,Activity Tolerance Progress Towards Goals Slow Progress due to Medical Issues,Slow Progress due to Activity Tolerance,Slow Progress due to Cognition Assessment Summary Pt MOD complexity and main barriers are decreased dynamic balance which may be from her ETOH withdrawal, but pt states recently prior to withdrawal has been needing to use a cane otherwise pt states is an avid hiker. Pending progress hopeful pt to go home with 24/ available assist otherwise at this current level will benefit from skilled rehab. Goals Self-Feeding Goal Independent Grooming Goal Independent Dressing Goal Independent Toileting Goal Independent Bathing Goal Standby Assistance Toilet Transfer Goal Independent Shower Transfer Goal Standby Assistance Days to Meet Goals 20 Frequency of Treatment Frequency Of Treatment Once a Day Treatment Plan OT Treatment Plan ADL Training,Functional Cognition Training,Functional Mobility,Patient/Family Education,Discharge Planning Discharge Recommendations OT Discharge Recommendations SNF Rehab Transportation Needs at Discharge Wheelchair/Cabulance
--- NOTE | 2023-11-19 16:48 | PM.PN.1 ---
Subjective Subjective Interval history: Patient feels a bit improved today with her mobility with addition of librium. Shaking is better but not resolved. Seen by OT whom recommended SNF. Exam Vital Signs (past 8 hours): - 11/19/23 11:11 11/19/23 12:00 11/19/23 15:30 Temperature 98.8 F 98.2 F Pulse Rate 99 H 101 H Respiratory Rate 20 18 Blood Pressure 138/92 H 130/81 Pulse Oximetry 95 95 96 Oxygen Delivery Method Room Air Oxygen Flow Rate 0 0 0 Oxygen Delivery Method Room Air Oxygen Flow Rate 0 Narrative Exam Narrative: General:? Patient is well developed and well nourished, in no distress at this time. HEENT:? Normocephalic, atraumatic, extraocular muscles intact, oral pharynx is clear and mucous membranes are moist. Neck: supple and symmetric, trachea is midline, no cervical adenopathy. Negative for JVD Chest:? Normal AP diameter and contour without kyphoscoliosis, no tachypnea, equal chest rise bilaterally. Lungs:? CTA b/l no wheezing rhonchi or rales. Cardio:?RRR no m/r/g. Abdomen: S NT ND. Musculoskeletal:? Muscle strength and tone are equal within normal limits, no deformity. Extremities: No edema or joint effusions. No cyanosis or clubbing. Skin:? Pale,? Warm to touch,dry and intact without rashes, ulcerations or petechiae.? Neuro:? Alert and orientated x3,? sensation to touch intact in all extremities, no gross deficits noted of cranial nerves. Mild tremulousness improved, no tongue fasciculations, strength is grossly +5/5 bilaterally and equal. Psych:? Patient has a well-kept appearance, appropriate affect, mental status attitude thought context and judgment are appropriate for age. Objective Labs 11/19/23 05:35 11/19/23 05:35 Labs: Laboratory Results - last 24 hr 11/19/23 05:35 WBC 5.7 RBC 2.67 L Hgb 9.3 L Hct 27.2 L MCV 102.1 H MCH 34.9 H MCHC 34.2 RDW 14.3 Plt Count 196 Neut % (Auto) 64.1 Lymph % (Auto) 19.7 L [place] % (Auto) 12.5 Eos % (Auto) 2.6 Baso % (Auto) 1.1 Neut # (Auto) 3700 Lymph # (Auto) 1100 [place] # (Auto) 700 Eos # (Auto) 200 Baso # (Auto) 100 Sodium 138 Potassium 3.9 Chloride 101 Carbon Dioxide 29 BUN 16 Creatinine 1.03 Estimated GFR 60 BUN/Creatinine Ratio 15.5 Glucose 95 Calcium 9.4 Magnesium 2.0 Total Bilirubin 0.9 AST 50 H ALT 31 Alkaline Phosphatase 75 Total Protein 7.8 Albumin 4.5 Globulin 3.3 Albumin/Globulin Ratio 1.4 Vitamin B12 615 [facility] Medical History Hypothyroidism HTN (hypertension) Obstructive sleep apnea (adult) (pediatric) Social History household members: significant other Smoking Status: Never smoker alcohol intake: current Assessment & Plan Assessment & Plan narrative: 1. Ataxia - suspect related to alcohol use, with acute alcohol withdrawal and tremulousness. Will treat as noted below. - cannot definintively rule out CVA, will checked MR stroke protocol which was negative. - PT/OT if not worsening from withdrawal perspective. - Possibly b12 deficient with some symptoms of peripheral neuropathy on report. B12 is within normal limits on labs today. - continue MVI, Folate, Thiamine supplementation. Consider high dose thiamine depending on progress with therapies and treatment of withdrawal. 2. Alcohol withdrawal, mild alcoholic hepatitis - started librium 25 mg TID for mild withdrawal, taper as able but will conitnue today given continued tremulousness. - CIWA protocol with as needed ativan ordered 3. Hypothyroidism - TSH 18.8. Had dose increased approx. 1 month ago per patient. Increased to 75 mcg yesterday. Repeat TSH in 6 weeks. 4. HTN - continue home losartan 5. Depression - continue home citalopram and wellbutrin 6. GERD - continue home PPI Code: DNR as discussed with patient. surrogate is patient's room-mate/friend DVT: Lovenox daily I have utilized all available immediate resources to obtain, update, or review the patient's current medications. Dispo: patient admitted under observation initially pending above evaluations, if symptoms persist despite initial treatments will change to inpatient. Unclear if will be able to discharge home or possible SNF, will have PT/OT evaluations. Quality VTE Deep Vein Thrombosis/Pulmonary Embolism Present on Admission: No
[2023-11-20] VITALS (12 sets, daily range): BP systolic 122–167; BP diastolic 71–101; PULSE 82–95; RESP 15–20; TEMP 36.2–36.9; O2SAT 95–100
[2023-11-20 05:11] LABS: Add Manual Diff / Slide Review NO; Basophils Absolute Auto 100 /uL (0-100); Eosinophils Absolute Auto 100 /uL (0-450); Eosinophils Percent Auto 2.3 % (2-4); Hematocrit 28.5 % (36-46); Hemoglobin 9.8 g/dL (12.0-16.0); Lymphocytes Absolute Auto 1200 /uL (1100-4500); Lymphocytes Percent Auto 19.9 % (25-40); Mean Corpuscular HGB Conc 34.3 % (30-36); Mean Corpuscular Hemoglobin 35.3 PG (26-34); Mean Corpuscular Volume 102.9 fL (80-100); Monocytes Absolute Auto 900 /uL (0-900); Monocytes Percent Auto 13.7 % (3-14); Neutrophils Absolute Auto 3900 /uL (1500-7000); Neutrophils Percent Auto 63.1 % (50-75); Platelet Count 209 X10^3/uL (150-400); Red Blood Cell Count 2.77 X10^6/uL (4.0-5.2); Red Cell Distribution Width 14.3 % (11.6-14.8); White Blood Cell Count 6.2 X10^3/uL (4.5-11.0)
[2023-11-20 05:20] LABS: Alanine Aminotransferase 28 IU/L (<35); Albumin 4.4 g/dL (3.5-5.0); Albumin Globulin Ratio 1.2 (1.0-2.8); Alkaline Phosphatase 71 U/L (38-126); Aspartate Aminotransferase 43 IU/L (14-36); BUN Creatinine Ratio 20.6 (6-22); Bilirubin Total 0.8 mg/dL (0.2-1.3); Blood Urea Nitrogen 20 mg/dL (7-17); Calcium 9.5 mg/dL (8.4-10.2); Carbon Dioxide 28 mmol/L (22-32); Chloride 101 mmol/L (98-107); Estimated Glomerular Filt Rate > 60 mL/min (>60); Globulin 3.6 g/dL (1.7-4.1); Glucose 107 mg/dL (80-110); HEMOLYSIS < 15 (0-50); Potassium 3.9 mmol/L (3.4-5.1); Sodium 137 mmol/L (137-145)
[2023-11-20] MEDS: LEVOTHYROXINE 75 MCG TABLET PO (06:11)
[2023-11-20] MEDS: PANTOPRAZOLE DR 20 MG TABLET PO (06:11)
[2023-11-20] MEDS: ENOXAPARIN 40 MG/0.4 ML SYRINGE SUBCUT (08:09)
[2023-11-20] MEDS: CITALOPRAM 10 MG TABLET 20 MG PO (08:10)
[2023-11-20] MEDS: THIAMINE 100 MG TABLET PO (08:10)
[2023-11-20] MEDS: buPROPion SR 150 MG TAB PO ×2 (08:10→21:50)
[2023-11-20] MEDS: MULTIVITAMIN 1 TABLET 1 TAB PO (08:10)
[2023-11-20] MEDS: FOLIC ACID 1 MG TABLET PO (08:10)
[2023-11-20] MEDS: LOSARTAN 50 MG TABLET PO (08:11)
[2023-11-20] MEDS: chlordiazePOXIDE 25 MG CAPSULE PO ×3 (08:12→21:50)
--- NOTE | 2023-11-20 08:30 | P.PN_ITS ---
Subjective Subjective Interval history: No nausea. Legs are still weak. They are getting better. Still feels unsteady on feet. Exam Vital Signs (past 8 hours): - 11/20/23 02:00 11/20/23 05:14 11/20/23 06:00 Temperature 97.3 F L Pulse Rate 89 Respiratory Rate 15 Blood Pressure 141/98 H Pulse Oximetry 96 95 95 Oxygen Delivery Method Room Air Room Air 11/20/23 08:11 Temperature Pulse Rate 83 Respiratory Rate Blood Pressure 167/101 H Pulse Oximetry Oxygen Delivery Method Oxygen Delivery Method Room Air Oxygen Flow Rate 0 Narrative Exam Narrative: NAD, alert and oriented. Fluent speech. Lungs are clear, normal rate and effort. Heart is regular, no murmur gallop or rub. Abdomen is soft, non distended. Extremities are free of edema. Ataxia with walking (with PT) Objective Labs 11/20/23 04:55 11/20/23 04:55 Labs: Laboratory Results - last 24 hr 11/20/23 04:55 WBC 6.2 RBC 2.77 L Hgb 9.8 L Hct 28.5 L MCV 102.9 H MCH 35.3 H MCHC 34.3 RDW 14.3 Plt Count 209 Neut % (Auto) 63.1 Lymph % (Auto) 19.9 L Schuyler % (Auto) 13.7 Eos % (Auto) 2.3 Baso % (Auto) 1.0 Neut # (Auto) 3900 Lymph # (Auto) 1200 Schuyler # (Auto) 900 Eos # (Auto) 100 Baso # (Auto) 100 Sodium 137 Potassium 3.9 Chloride 101 Carbon Dioxide 28 BUN 20 H Creatinine 0.97 Estimated GFR > 60 BUN/Creatinine Ratio 20.6 Glucose 107 Calcium 9.5 Magnesium 2.0 Total Bilirubin 0.8 AST 43 H ALT 28 Alkaline Phosphatase 71 Total Protein 8.0 Albumin 4.4 Globulin 3.6 Albumin/Globulin Ratio 1.2 [facility] Medical History Hypothyroidism HTN (hypertension) Obstructive sleep apnea (adult) (pediatric) Social History household members: significant other Smoking Status: Never smoker alcohol intake: current Assessment & Plan Assessment & Plan narrative: 1. Ataxia, present on admission and improving. - suspect related to alcohol use, with acute alcohol withdrawal and tremulousness. Will treat as noted below. - cannot definintively rule out CVA, will checked MR stroke protocol which was negative. - PT/OT if not worsening from withdrawal perspective. - Possibly b12 deficient with some symptoms of peripheral neuropathy on report. B12 is within normal limits on labs today. - continue MVI, Folate, Thiamine supplementation. Consider high dose thiamine depending on progress with therapies and treatment of withdrawal. 2. Alcohol withdrawal, mild alcoholic hepatitis. Present on admission and improving. - started librium 25 mg TID for mild withdrawal, taper as able but will conitnue today given continued tremulousness. - CIWA protocol with as needed ativan ordered 3. Hypothyroidism, stable. - TSH 18.8. Had dose increased approx. 1 month ago per patient. Increased to 75 mcg yesterday. Repeat TSH in 6 weeks. 4. HTN, stable. - continue home losartan 5. Depression - continue home citalopram and wellbutrin 6. GERD, stable. - continue home PPI Was admitted under observation status. Has been in hospital for 2 MN receiving care. Still with significant ataxia, requires another midnight of care and ongoing physical therapy evaluation and time to improve. Quality VTE Deep Vein Thrombosis/Pulmonary Embolism Present on Admission: No
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
[2023-11-21] VITALS (14 sets, daily range): BP systolic 107–134; BP diastolic 50–81; PULSE 73–87; RESP 14–18; TEMP 36.1–37.3; O2SAT 95–98
[2023-11-21 05:36] LABS: Add Manual Diff / Slide Review NO; Basophils Absolute Auto 100 /uL (0-100); Basophils Percent Auto 1.3 % (0-2); Eosinophils Absolute Auto 200 /uL (0-450); Eosinophils Percent Auto 2.3 % (2-4); Hematocrit 27.6 % (36-46); Hemoglobin 9.5 g/dL (12.0-16.0); Lymphocytes Absolute Auto 1200 /uL (1100-4500); Lymphocytes Percent Auto 18.4 % (25-40); Mean Corpuscular HGB Conc 34.3 % (30-36); Mean Corpuscular Hemoglobin 35.3 PG (26-34); Mean Corpuscular Volume 102.9 fL (80-100); Monocytes Absolute Auto 1000 /uL (0-900); Monocytes Percent Auto 15.7 % (3-14); Neutrophils Absolute Auto 4200 /uL (1500-7000); Neutrophils Percent Auto 62.3 % (50-75); Platelet Count 204 X10^3/uL (150-400); Red Blood Cell Count 2.68 X10^6/uL (4.0-5.2); Red Cell Distribution Width 14.1 % (11.6-14.8); White Blood Cell Count 6.7 X10^3/uL (4.5-11.0)
[2023-11-21 05:44] LABS: Alanine Aminotransferase 23 IU/L (<35); Albumin 4.2 g/dL (3.5-5.0); Albumin Globulin Ratio 1.3 (1.0-2.8); Alkaline Phosphatase 70 U/L (38-126); Aspartate Aminotransferase 39 IU/L (14-36); BUN Creatinine Ratio 22.4 (6-22); Bilirubin Total 0.6 mg/dL (0.2-1.3); Blood Urea Nitrogen 22 mg/dL (7-17); Calcium 9.1 mg/dL (8.4-10.2); Carbon Dioxide 26 mmol/L (22-32); Chloride 105 mmol/L (98-107); Estimated Glomerular Filt Rate > 60 mL/min (>60); Globulin 3.3 g/dL (1.7-4.1); Glucose 122 mg/dL (80-110); HEMOLYSIS < 15 (0-50); Sodium 138 mmol/L (137-145); Total Protein 7.5 g/dL (6.3-8.2)
[2023-11-21] MEDS: LEVOTHYROXINE 75 MCG TABLET PO (06:09)
[2023-11-21] MEDS: PANTOPRAZOLE DR 20 MG TABLET PO (06:09)
[2023-11-21] MEDS: THIAMINE 100 MG TABLET PO (09:15)
[2023-11-21] MEDS: MULTIVITAMIN 1 TABLET 1 TAB PO (09:15)
[2023-11-21] MEDS: LOSARTAN 50 MG TABLET PO (09:15)
[2023-11-21] MEDS: buPROPion SR 150 MG TAB PO ×2 (09:15→21:39)
[2023-11-21] MEDS: CITALOPRAM 10 MG TABLET 20 MG PO (09:15)
[2023-11-21] MEDS: chlordiazePOXIDE 25 MG CAPSULE PO ×3 (09:15→21:39)
[2023-11-21] MEDS: FOLIC ACID 1 MG TABLET PO (09:16)
[2023-11-21] MEDS: ENOXAPARIN 40 MG/0.4 ML SYRINGE SUBCUT (09:16)
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
--- NOTE | 2023-11-21 13:42 | PM.PN.1 ---
Subjective Subjective Interval history: She was improving, but still very unsteady on her feet. She has using a walker and only able to walk several steps without feeling like she might fall. She denies any pain, or dyspnea. No confusion or hallucinations. Exam Vital Signs (past 8 hours): - 11/21/23 06:57 11/21/23 08:00 11/21/23 09:15 Temperature 98.0 F Pulse Rate 82 82 Respiratory Rate 16 Blood Pressure 132/81 132/81 Pulse Oximetry 98 96 Oxygen Delivery Method Room Air Oxygen Flow Rate 0 11/21/23 10:00 11/21/23 12:00 Temperature 97.3 F L Pulse Rate 73 Respiratory Rate 14 Blood Pressure 120/77 Pulse Oximetry 97 95 Oxygen Delivery Method Room Air Oxygen Flow Rate 0 0 Oxygen Delivery Method Room Air Oxygen Flow Rate 0 Narrative Exam Narrative: NAD, alert and oriented. Fluent speech. Lungs are clear, normal rate and effort. Heart is regular, no murmur gallop or rub. Abdomen is soft, non distended. Extremities are free of edema. Objective Labs 11/21/23 05:10 11/21/23 05:10 Labs: Laboratory Results - last 24 hr 11/21/23 05:10 WBC 6.7 RBC 2.68 L Hgb 9.5 L Hct 27.6 L MCV 102.9 H MCH 35.3 H MCHC 34.3 RDW 14.1 Plt Count 204 Neut % (Auto) 62.3 Lymph % (Auto) 18.4 L Banner % (Auto) 15.7 H Eos % (Auto) 2.3 Baso % (Auto) 1.3 Neut # (Auto) 4200 Lymph # (Auto) 1200 Banner # (Auto) 1000 H Eos # (Auto) 200 Baso # (Auto) 100 Sodium 138 Potassium 4.0 Chloride 105 Carbon Dioxide 26 BUN 22 H Creatinine 0.98 Estimated GFR > 60 BUN/Creatinine Ratio 22.4 H Glucose 122 H Calcium 9.1 Magnesium 2.0 Total Bilirubin 0.6 AST 39 H ALT 23 Alkaline Phosphatase 70 Total Protein 7.5 Albumin 4.2 Globulin 3.3 Albumin/Globulin Ratio 1.3 [facility] Medical History Hypothyroidism HTN (hypertension) Obstructive sleep apnea (adult) (pediatric) Social History household members: significant other Smoking Status: Never smoker alcohol intake: current Assessment & Plan Assessment & Plan narrative: 1. Ataxia, present on admission and improving. 2. Alcohol withdrawal, mild alcoholic hepatitis. Present on admission and improving. 3. Hypothyroidism, stable. - TSH 18.8. Had dose increased approx. 1 month ago per patient. Increased to 75 mcg yesterday. Repeat TSH in 6 weeks. 4. HTN, stable. - continue home losartan 5. Depression - continue home citalopram and wellbutrin 6. GERD, stable. - continue home PPI Plan: -continue physical therapy efforts for gait instability and leg weakness, she was improving and will likely be stable enough for discharge on November 21. She may need home health and a walker. Quality VTE Deep Vein Thrombosis/Pulmonary Embolism Present on Admission: No
--- NOTE | 2023-11-21 14:56 | PT.IPTN ---
Addendum entered and electronically signed by Alethea Gonzalez PT 11/21/23 14:58: PT performed treatment and SPT wrote up note and PT reviewed Original Note: Physical Therapy Treatment Note M2 PT-IP Current Condition Start: 11/19/23 16:52 Freq: NEEDED Status: Active Protocol: Document 11/21/23 14:10 JG (Rec: 11/21/23 14:56 JG [id number]) Physical Therapy Current Condition Current Condition Evaluation Date 11/19/23 Treatment Diagnosis alcohol withdrawal; difficulty in walking Onset Date 11/18/23 M3 PT-IP Subjective Start: 11/19/23 16:52 Freq: NEEDED Status: Active Protocol: Document 11/21/23 14:10 JG (Rec: 11/21/23 14:56 JG [id number]) Subjective Physical Therapy Visit Type Type Treatment Note Visit Start Time 02:10 Visit Stop Time 02:29 Number of SMOKE INSPECTOR Visits 0 Physical Therapy Visit Comments Patient Comments Pt reports she is feeling much better and is asking to move around more and more M4 PT-IP Mobility and Gait Start: 11/19/23 16:52 Freq: NEEDED Status: Active Protocol: Document 11/21/23 14:10 JG (Rec: 11/21/23 14:56 JG [id number]) PT-Transfer Assessment Sit to and From Stand Sit to and from Stand Standby Assistance Equipment Transfer Assistive Device Gait Belt,Front Wheeled Walker Orthotic/Prosthetic Devices or Brace: No Transfers Transfer Destination Chair Transfer Ability Level of Assist Standby Assistance,Contact Guard Assistance Comments Mobility Comments Pt required minimal cuing for standing to sit transfer to chair Gait Assessment Gait Gait Assistance Required: Standby Assistance Distance (Feet) 100 Able to Maintain Weight Bearing Status Yes During Gait Assistive Devices Assistive Device Gait Belt,Front Wheeled Walker Orthotic/Prosthetic Devices or Brace: No Gait Deviations General Gait Pattern Ataxic,Decreased Stride Length ,Decreased Feet Clearance, Flexed Trunk,Wide Based Gait Factors Limiting Gait Function Factors Limiting Gait Function Decreased Activity Tolerance, Decreased Strength, Incoordination,Poor Balance Comments Gait Comments Pt gait trains 100'x2 with RW. She initially gaits very slowly with short steps and wide LEONOR, step-to pattern. This appears almost magnetic in presentation but pt is able to change gait pattern with one cue to step bigger. Then, her LEONOR is more normal and her kierra improves. Heavy UE use on the RW, likely d/t unsteadiness/imbalance. Stair Climbing Assessment Evaluation Level of Assist On Stairs Standby Assistance,Contact Guard Assistance Devices Stair Climbing Assistive Devices Left Railing,Right Railing Technique/Endurance Stair Climbing Direction Ascend and Descend Stair Climbing Technique Step Over Step Number of Steps Climbed 3 Stair Climbing Set # Repetitions (reps) 1 Comments Stair Climbing Comments Pt opted to acscend and descend stairs using R and L railing PT-Balance Assessment Sitting Balance and Reactions Static Sitting Balance Ability Good Dynamic Sitting Balance Ability Good Standing Balance and Reactions Static Standing Balance Ability Good Dynamic Standing Balance Ability Good Device Used FWW Comments Other Balance Tests/Deviations/Treatment Pt does requires cues to keep : the walker with her and to keep her feet inside the walker. M5 PT-IP Objective Assessments Start: 11/19/23 16:52 Freq: NEEDED Status: Active Protocol: Document 11/21/23 14:10 JG (Rec: 11/21/23 14:56 J [id number]) Orientation Orientation/Cognition Level of Alertness Alert Orientation Name,Age,Birthday,Date,Day of Week,Place,Situation Safety Awareness Understands Safety Issues Gross Range of Motion Lower Extremity ROM Assessment Within Functional Limits Strength Lower Extremity Strength Assessment Within Functional Limits M6 PT-IP Treatment Start: 11/19/23 16:52 Freq: NEEDED Status: Active Protocol: Document 11/21/23 14:10 JG (Rec: 11/21/23 14:56 J [id number]) Physical Therapy Treatment Exercises Exercises Ankle Pumps,Quad Sets,Short Arc Quads,Shoulder Flexion Education Education Provided Safety M7 PT-IP Assessment and Plan Start: 11/19/23 16:52 Freq: NEEDED Status: Active Protocol: Document 11/21/23 14:10 JG (Rec: 11/21/23 14:56 J [id number]) PT Summary Assessment and Plan Potential Rehabilitation Potential Good Status of Condition at Evaluation Evolving Summary Impairments Strength,Balance,Coordination, Tone,Gait,Activity Tolerance Progress Towards Goals Progressing Toward Goals Assessment Summary Pt is a 68 y/o female and is making progress with mobility. She required cueing to decrease the width of her gait and to increase step length and foot clearance. Increased gait distance and able to perform steps today. Pt con't with orthostatic hypotension with BP and HR in LUE: sitting 117/80, 94; standing 107/68, 100: standing 1' 125/74, 101. Goals Bed Mobility Goal Independent Transfer Goal Independent,Front Wheeled Walker Gait Goal Independent,Front Wheel Walker Gait Distance 200 Other Goals Progress to one step with AD and gait with LRAD Days to Meet Goals 10 Frequency of Treatment Frequency Of Treatment Once a Day Treatment Plan Physical Therapy Treatment Plan Bed Mobility Training,Transfer Training,Gait Training, Therapeutic Exercise,Balance Retraining,Discharge Planning, Hot or Cold Pack,Neuromuscular Re-ed,Coordination Retraining Precautions Other Precautions falls Recommendations To Nursing Amount of Assist Needed 1 Person Assist Discharge Recommendations PT Discharge Recommendations Home with Assistance,Home Health Equipment Needed for Home Before FWW for home Discharge Transportation Needs at Discharge Private Vehicle
[2023-11-22 02:11] VITALS: O2SAT 96
[2023-11-22 03:00] VITALS: BP 117/67; PULSE 76; RESP 16; TEMP 36.1; O2SAT 97
[2023-11-22] MEDS: PANTOPRAZOLE DR 20 MG TABLET PO (06:03)
[2023-11-22] MEDS: LEVOTHYROXINE 75 MCG TABLET PO (06:03)
[2023-11-22 06:06] VITALS: O2SAT 97
[2023-11-22 08:00] VITALS: BP 114/70; PULSE 71; RESP 18; TEMP 36.3; O2SAT 99
--- NOTE | 2023-11-22 08:47 | PM.DS.1 ---
History of Present Illness History of Present Illness Chief complaint: Tremors t-2 days Narrative: From H&P: 68 F with PMH of EtOH use, HTN, hypothyroid, depression GERD who presented with complaint of difficulty walking. She cannot walk more than a couple of feet without significant help. She had been drinking a fifth for years, has been trying to cut down for the last 2 weeks to wean off alcohol when starting 2 days ago she had difficulty walking, difficulty with speech, shaking / tremors that will wax and wane. She denies nausea or vomiting. She denies dizziness. Denies prior admissions for EtOH use. No fever, chills, abdominal pain, lower extremity edema. Denies focal numbness, tingling, or weakness. Initially patient was hypertensive, remainder of her vitals were unremarkable. She was given phenobarbital and ativan with mild improvement but still continued to have difficulty walking. She was admitted for further management. Discharge Providers Provider Date of admission: 11/18/23 15:15 Discharge Date: 11/22/23 Primary care physician: Laila Mariee MD Consults: 11/18/23 16:20 Consult to Occupational Therapy Evaluate & Treat Comment: Physician Instructions: Evaluate and treat Consult to Physical Therapy Evaluate & Treat Comment: Physician Instructions: Evaluate and Treat 11/20/23 12:29 Consult to Physical Therapy Evaluate & Treat Comment: Physician Instructions: FWW For Home Use Discharge provider: Jorge L Eugene MD Summary Hospital Course Discharge Diagnosis: 1. Ataxia, present on admission and improving. 2. Alcohol withdrawal, mild alcoholic hepatitis. Present on admission and improving. 3. Hypothyroidism, stable. - TSH 18.8. Had dose increased approx. 1 month ago per patient. Increased to 75 mcg yesterday. Repeat TSH in 6 weeks. 4. HTN, stable. - continue home losartan 5. Depression - continue home citalopram and wellbutrin 6. GERD, stable. - continue home PPI Hospital Course: She was admitted with tremor, ataxia, and alcohol withdrawal. She was treated in standard fashion for alcohol withdrawal and given vitamin supplementation as well as physical therapy evaluation and treatment. The patient was placed on oral Librium and improved dramatically over the next several days. In the day of discharge she was mentally at baseline. She was coherent had normal judgment and thought content. She was able to ambulate safely with a walker and agrees to use this for the next 1-2 weeks until she normalizes. She intends to stopped drinking altogether and resume AA meetings and contact her sponsor. Status at Discharge Cognitive/behavioral status at discharge: oriented Functional status at discharge: uses cane/walker Overall status at discharge: patient is progressing back to baseline Time Spent with Patient Time spent: Greater than 30 minutes Exam Vital Signs (past 8 hours): - 11/22/23 02:11 11/22/23 03:00 11/22/23 06:06 Temperature 97.0 F L Pulse Rate 76 Respiratory Rate 16 Blood Pressure 117/67 Pulse Oximetry 96 97 97 Oxygen Delivery Method Room Air Room Air Oxygen Flow Rate 0 0 0 Oxygen Delivery Method Room Air Oxygen Flow Rate 0 Narrative Exam Narrative: No acute distress, normal speech and thought content. Breathing comfortable with normal effort. No abdominal distention. Moving arms and legs normally, no leg edema. Objective Imaging Multiple studies:: Radiologist's impression: Brain MRI and MRA: BRAIN MRI: 1. No acute or subacute infarct. No acute intracranial abnormalities. 2. Mild age-related global volume loss and microvascular ischemic changes. BRAIN MR ANGIOGRAM: No significant arterial abnormalities. NECK MR ANGIOGRAM: No significant arterial abnormalities. CT brain: Unremarkable. Chest x-ray: Unremarkable. Labs 11/21/23 05:10 11/21/23 05:10 [facility] Medical History Hypothyroidism HTN (hypertension) Obstructive sleep apnea (adult) (pediatric) Social History household members: significant other Smoking Status: Never smoker alcohol intake: current Discharge Assessment & Plan Assessment and Plan Assessment: 1. Ataxia, present on admission and improving. 2. Alcohol withdrawal, mild alcoholic hepatitis. Present on admission and improving. 3. Hypothyroidism, stable. - TSH 18.8. Had dose increased approx. 1 month ago per patient. Increased to 75 mcg yesterday. Repeat TSH in 6 weeks. 4. HTN, stable. - continue home losartan 5. Depression - continue home citalopram and wellbutrin 6. GERD, stable. - continue home PPI Plan of Treatment: She is stable for discharge home on resume her usual chronic medications. She will use a walker for the next 1-2 weeks and follow up with her PCP. She will resume AA meetings and contact her AA sponsor. Discharge Plan Discharge Plan Patient Disposition: Home Provider Discharge Comment: Stable for discharge home. We will use a walker for the next 1-2 weeks for gait stability. Discharge orders & Medications Prescriptions: Continued bupropion HCl 150 mg tablet sustained-release 12 hr 150 mg PO BID citalopram 20 mg tablet 20 mg PO DAILY levothyroxine 50 mcg capsule 50 mcg PO DAILY losartan 50 mg tablet 50 mg PO DAILY omeprazole 20 mg capsule,delayed release(DR/EC) 20 mg PO DAILY Discontinued chlordiazepoxide HCl 25 mg capsule 25 mg PO .ASDIR Qty: 15 0RF Rx Instructions: Day 1: 50mg po q6h Day 2: 25mg po q6h Day 3: 25mg po q12h Day 4: 25mg once at night hydroxyzine pamoate 25 mg/5 mL suspension 25 mg PO DAILY Medication counseling provided by Pharmacist: No Follow up/Referrals: Laila Mairee MD [Primary Care Provider] - Discharge Health Status Multidrug resistant organism: No MDRO Diet/Activity/Treatments Diet: Diet as Tolerated Visit Report/Discharge Packet Instructions: Alcohol Use Disorder Stand Alone Forms: Patient Portal/API Discharge Data Primary Care Provider: Laila Mariee Attending Provider: Tru Julian Admit Date/Time: 11/18/23 15:15 Quality VTE Deep Vein Thrombosis/Pulmonary Embolism Present on Admission: No
[2023-11-22] MEDS: LOSARTAN 50 MG TABLET PO (09:18)
[2023-11-22] MEDS: chlordiazePOXIDE 25 MG CAPSULE PO (09:18)
[2023-11-22] MEDS: MULTIVITAMIN 1 TABLET 1 TAB PO (09:18)
[2023-11-22] MEDS: FOLIC ACID 1 MG TABLET PO (09:18)
[2023-11-22] MEDS: CITALOPRAM 10 MG TABLET 20 MG PO (09:18)
[2023-11-22] MEDS: THIAMINE 100 MG TABLET PO (09:18)
[2023-11-22] MEDS: buPROPion SR 150 MG TAB PO (09:19)
[2023-11-22] MEDS: ENOXAPARIN 40 MG/0.4 ML SYRINGE SUBCUT (09:19)
--- NOTE | 2023-11-22 10:41 | OT.IP.TRT ---
Occupational Therapy Treatment Note M2 OT-IP Current Condition Start: 11/19/23 16:01 Freq: Status: Active Protocol: Document 11/19/23 16:02 [facility] (Rec: 11/19/23 16:19 [facility] [id number]) Occupational Therapy Current Condition Current Condition Evaluation Date 11/19/23 Treatment Diagnosis Ataxia, ETOH withdrawal Diagnosis Onset Date 11/18/23 M3 OT- IP Subjective and Pain Start: 11/19/23 16:01 Freq: Status: Active Protocol: Document 11/22/23 10:43 [facility] (Rec: 11/22/23 10:52 [facility] [id number]) OT- Subjective Occupational Therapy Visit Type Type Treatment Note Visit Start Time 10:31 Visit Stop Time 10:41 Occupational Therapy Visit Comments Patient Comments Pt agreed to have the sliders put on her FWW. Patient/Caregiver Goals TO go home. M4 OT- IP ADL's Start: 11/19/23 16:01 Freq: Status: Active Protocol: Document 11/22/23 10:43 [facility] (Rec: 11/22/23 10:52 [facility] [id number]) OT ADL-Toileting Comments OT Toileting Comments Pt will benefit from a BSC. OT ADL-Bathing Comments OT Bathing Comments Pt will continue to benefit from a tub bench for safety to get into and out of the tub. M6 OT- IP Functional Cognition Start: 11/19/23 16:01 Freq: Status: Active Protocol: Document 11/22/23 10:43 [facility] (Rec: 11/22/23 10:52 [facility] [id number]) Cognitive Factors Limiting Selfcare Function Cognitive Comments Cognitive Assessment Comments Pt needs encouragement to take her time and think things through. Pt realizes will benefit from getting a belt bag to be able to carry her cell phone. Pt is aware that she will need assist from her friend and to get ADL equipment. M7 OT- IP Mobility and Balance Start: 11/19/23 16:01 Freq: Status: Active Protocol: Document 11/22/23 10:43 [facility] (Rec: 11/22/23 10:52 [facility] [id number]) OT-Transfer Assessment Sit to and From Stand Sit to and from Stand Standby Assistance Transfers Transfer Ability Standby Assistance Devices Transfer Assistive Devices Front Wheeled Walker Comments Mobility Comments Pt able to get up with SBA to the FWW. VC to keep th FWW in front of her at all times. OT- Balance Assessment Sitting Balance and Reactions Static Sitting Balance Ability Good Dynamic Sitting Balance Ability Good Standing Balance and Reactions Static Standing Balance Ability Good Dynamic Standing Balance Ability Fair M9 OT- IP Assessment and Plan Start: 11/19/23 16:01 Freq: Status: Active Protocol: Document 11/22/23 10:43 [facility] (Rec: 11/22/23 10:52 [facility] [id number]) OT Summary Assessment and Plan Potential Rehabilitation Potential Good Analytic Complexity at Evaluation Moderate Summary OT Impairments Strength,Balance,Coordination, Functional Cognition, Functional Mobility,Grooming, Dressing,Toileting,Bathing, Toilet Transfers,Shower Transfers,Activity Tolerance Progress Towards Goals Progressing Toward Goals Assessment Summary Pt doing much better today and mainly SBA with FWW. Able to talk to pt for equipment needs . Pt to go home with 24/7 available assist and benefit from home health versus outpt PT. Goals Self-Feeding Goal Independent Grooming Goal Independent Dressing Goal Independent Toileting Goal Independent Bathing Goal Standby Assistance Toilet Transfer Goal Independent Shower Transfer Goal Standby Assistance Days to Meet Goals 10 Frequency of Treatment Frequency Of Treatment Once a Day Treatment Plan OT Treatment Plan ADL Training,Functional Cognition Training,Functional Mobility,Patient/Family Education,Discharge Planning Discharge Recommendations OT Discharge Recommendations Home with 24/7 Assist Available,Home Health, Outpatient PT Transportation Needs at Discharge Private Vehicle
--- NOTE | 2023-11-22 10:41 | CM.DPNOTE ---
Addendum entered by BETTIE Panchal 11/22/23 11:01: [employer] MANAGER met with pt about OP PT. Pt was being wheeled out the door to dc home, ride was here. Pt has f/u appt with PCP tomorrow and reports they will arrange for OP PT. Pt denies other needs. SL Original Note: DCP Note [employer] MA[employer] reviewed EMR. Per chart review, pt cleared to dc home today. Need walker for home use. [employer] MANAGER met with pt in room. Pt reports she has a hx of MH/[facility]IGOBERTO treatment at [facility] and reports she knows where to go for additional alcohol use resources. Pt reports she is on a housing waiting list and is not interested in other housing resources. Pt reports having a ride home and denies other DCP/[employer] MANAGER/CM needs at this time. Updated PT on walker for home use, PT hopeful for pt to be set up with OP PT Plan: pt to dc home with walker from here. Deny other CM needs. CM team will continue to follow as needed. BETTIE Panchal
--- NOTE | 2023-11-22 11:00 | PT.IPTN ---
Addendum entered and electronically signed by Alethea Gonzalez PT 11/22/23 11:05: PT provides direct supervision during treatment performed by SPT Original Note: Physical Therapy Treatment Note M2 PT-IP Current Condition Start: 11/19/23 16:52 Freq: NEEDED Status: Active Protocol: Document 11/21/23 14:10 [facility] (Rec: 11/21/23 14:56 [facility] [id number]) Physical Therapy Current Condition Current Condition Evaluation Date 11/19/23 Treatment Diagnosis alcohol withdrawal; difficulty in walking Onset Date 11/18/23 M3 PT-IP Subjective Start: 11/19/23 16:52 Freq: NEEDED Status: Active Protocol: Document 11/22/23 10:23 [facility] (Rec: 11/22/23 10:58 [facility] [id number]) Subjective Physical Therapy Visit Type Type Treatment Note Visit Start Time 09:58 Visit Stop Time 10:23 Number of STRATEGIC MANAGER Visits 0 Physical Therapy Visit Comments Patient Comments Pt is feeling better today and was able to move more today then yesterday M4 PT-IP Mobility and Gait Start: 11/19/23 16:52 Freq: NEEDED Status: Active Protocol: Document 11/22/23 10:23 J[facility] (Rec: 11/22/23 10:58 [facility] [id number]) PT-Transfer Assessment Sit to and From Stand Sit to and from Stand Independent Equipment Transfer Assistive Device Gait Belt,Front Wheeled Walker Orthotic/Prosthetic Devices or Brace: No Transfers Transfer Destination Chair Transfer Ability Level of Assist Independent Comments Mobility Comments Pt required cueing for use of hand placement for stand to sit transfer. Pt also required cueing to keep back upright and walker close while ambulating. Pt also needed cueing to take bigger steps during ambulation. Gait Assessment Gait Gait Assistance Required: Independent Distance (Feet) 100 Able to Maintain Weight Bearing Status Yes During Gait Assistive Devices Assistive Device Gait Belt,Front Wheeled Walker Orthotic/Prosthetic Devices or Brace: No Gait Deviations General Gait Pattern Decreased Stride Length, Decreased Feet Clearance, Flexed Trunk,Wide Based Gait Factors Limiting Gait Function Factors Limiting Gait Function Decreased Activity Tolerance, Decreased Strength, Incoordination,Poor Balance Comments Gait Comments Pt ambulates with short steps and a wide step to gait pattern. When cued, pt increases her step length moves closer to the walker and maintains an upright posture. Pt gait trained for 100'x2 with RW. Did try w/o safety device and nither PT nor pt felt steady. PT-Balance Assessment Sitting Balance and Reactions Static Sitting Balance Ability Good Dynamic Sitting Balance Ability Good Standing Balance and Reactions Static Standing Balance Ability Good Dynamic Standing Balance Ability Good Device Used FWW Comments Other Balance Tests/Deviations/Treatment Pt does requires cues to keep : the walker with her and to keep her feet inside the walker. M5 PT-IP Objective Assessments Start: 11/19/23 16:52 Freq: NEEDED Status: Active Protocol: Document 11/21/23 14:10 [facility] (Rec: 11/21/23 14:56 [facility] [id number]) Orientation Orientation/Cognition Level of Alertness Alert Orientation Name,Age,Birthday,Date,Day of Week,Place,Situation Safety Awareness Understands Safety Issues Gross Range of Motion Lower Extremity ROM Assessment Within Functional Limits Strength Lower Extremity Strength Assessment Within Functional Limits M6 PT-IP Treatment Start: 11/19/23 16:52 Freq: NEEDED Status: Active Protocol: Document 11/22/23 10:23 [facility] (Rec: 11/22/23 10:58 J [id number]) Physical Therapy Treatment Education Education Provided Safety Other Treatments Other Treatment Performed Provided walker and set up pt with correct height and had her walk with it. M7 PT-IP Assessment and Plan Start: 11/19/23 16:52 Freq: NEEDED Status: Active Protocol: Document 11/22/23 10:23 [facility] (Rec: 11/22/23 10:58 J [id number]) PT Summary Assessment and Plan Potential Rehabilitation Potential Good Status of Condition at Evaluation Evolving Summary Impairments Strength,Balance,Coordination, Gait,Activity Tolerance Progress Towards Goals Progressing Toward Goals Assessment Summary Pt is a 68 y/o female making progress with mobility. She still needs VC to improve posture and increase step length during ambulation. Pt did mention that she is feeling symtoms when she shifts her head back and forth and was recommended to outpatient physical therapy upon discharge. entered as PT finshed and pt asked what he thought happened and MD said that it was ETOH. Appeared that pt was not receptive of information and this concerns PT as far as safety awareness and fall risk going forward. Goals Bed Mobility Goal Independent Transfer Goal Independent,Front Wheeled Walker Gait Goal Independent,Front Wheel Walker Gait Distance 200 Other Goals Progress to one step with AD and gait with LRAD Days to Meet Goals 10 Frequency of Treatment Frequency Of Treatment Discharge Precautions Other Precautions falls Recommendations To Nursing Amount of Assist Needed Standby Assistance Discharge Recommendations PT Discharge Recommendations Home with 18/01 Assist Available,Outpatient PT Transportation Needs at Discharge Private Vehicle
== END 2023-11-22 11:00 | disposition home or self-care (01) ==
LOC: ED 10:59 → AC 15:16
PROVIDERS: Admitting Provider Internal Medicine; Emergency Provider Emergency Medicine; PCP Family Medicine; Referring Provider Emergency Medicine; Visit Provider Internal Medicine
DX: F10.139 Alcohol abuse with withdrawal, unspecified (principal); Y90.0 Blood alcohol level of less than 20 mg/100 ml; K70.10 Alcoholic hepatitis without ascites; R29.700 NIHSS score 0; R27.0 Ataxia, unspecified; E03.9 Hypothyroidism, unspecified; K21.9 Gastro-esophageal reflux disease without esophagitis; I10 Essential (primary) hypertension
CPT/HCPCS: 36415; 70450; 70544; 70549; 70553; 71045; 80053; 80305; 80320; 81003; 82550; 82607; 82746; 83690; 83735; 84443; 84484; 85025; 85610; 85730; 93005; 96365; 96372; 96375; 97116; 97162; 97166; 97530; 99284; G0378; A9270; A9579; J1650; J2060; J2560